=== PATIENT | female | born 1950 | race Caucasian/White ===

== ENCOUNTER 2018-01-11 12:24 | Inpatient (IN) ==
[2018-01-11] MEDS ORDERED: MethylPREDNISolone Sod Succinate Inj 125 MG/2 ML Vial IV.PUSH ONE (12:49)
--- NOTE | 2018-01-11 13:22 | ED ---
HPI General Chief complaint: Respiratory Symptoms Stated complaint: SOB Time Seen by Provider: 01/11/18 12:38 Source: patient and family Mode of arrival: wheelchair Limitations: no limitations History of Present Illness HPI narrative: 67-year-old female with a history of smoking the presents to the ED for evaluation of shortness of breath and cold-like symptoms. Per patient she has had a shortness of breath for almost a week. Per family member who provides most of the information she has been sick for about a week but the past 2 days she has been having a lot of trouble breathing. She cannot lay down on her own. She does not have a history of COPD but believes that she has emphysema. She does not use any medications and has not seen any physician for the past 5 years. Denies any chest pain. She states having some cough but her main symptom is just short of breath. She was walking on even sitting causes shortness of breath. Even just sitting on the table right now causes her shortness of breath. She denies any recent travel. No history of blood clots. Per patient she is never been diagnosed with anything as far she. She takes no medications. No surgeries. No recent travel. Related Data Home Medications Medication Instructions Recorded Confirmed No Known Home Medications 01/11/18 01/11/18 Allergies Allergy/AdvReac Type Severity Reaction Status Date / Time No Known Allergies Allergy Verified 01/11/18 12:32 Review of Systems ROS: all other systems reviewed are negative [facility] Medical History Medical History History of hysterectomy (Acute) Patient denies medical problems (Acute) Social History Social History Substance History: No History of Abuse Second Hand Smoke Exposure: No Smoking Status: Former smoker Tobacco Type: Cigarettes How Often Do You Have a Drink Containing Alcohol: Never Recent Travel in [facility] within the Last 8 Weeks: No Recent Out of Country Travel within the Last 8 Weeks: No Immunization History Tetanus Immunization: >5 Years Hx Influenza Vaccine This Season: No Exam Narrative Exam Narrative: GENERAL: Very dishoveled and in some distress SKIN: Focused skin assessment warm/dry. HEAD: Atraumatic. Normocephalic. EYES: Pupils equal and round. No scleral icterus. No injection or drainage. ENT: No nasal bleeding or discharge. Mucous membranes pink and moist. Tongue is midline. No uvula deviation. NECK: Trachea midline. No JVD. CARDIOVASCULAR: Irregular irregular rate and rhythm. No murmur appreciated. RESPIRATORY: No accessory muscle use. Clear to auscultation. Breath sounds equal bilaterally. GASTROINTESTINAL: Abdomen soft, non-tender, nondistended. Hepatic and splenic margins not palpable. MUSCULOSKELETAL: No obvious deformities. No clubbing. No cyanosis. No edema. Full range of motion of the upper and lower extremity bilaterally. 2+ pulses bilaterally. NEUROLOGICAL: Awake and alert. No obvious cranial nerve deficits. Motor grossly within normal limits. Normal speech. PSYCHIATRIC: Appropriate mood and affect; insight and judgment normal. Course Initial Documented Vital Signs Temperature 97.1 F L 01/11/18 12:26 Pulse Rate 98 H 01/11/18 12:26 Respiratory Rate 16 01/11/18 12:26 Blood Pressure 179/93 H 01/11/18 12:26 Pulse Oximetry 91 L 01/11/18 12:26 Last Documented Vital Signs Temperature 97.1 F L 01/11/18 12:26 Pulse Rate 144 H 01/11/18 16:57 Respiratory Rate 16 01/11/18 16:57 Blood Pressure 136/98 H 01/11/18 16:57 Pulse Oximetry 93 L 01/11/18 16:57 Medical Decision Making MDM Narrative Medical decision making narrative: 67-year-old female that presents to the ED for evaluation of shortness of breath. Patient was properly examined and was found to have signs and symptoms concerning what appears to be atrial fibrillation RVR. She is in the heart rate in the 140s 150s. Her lung exam appears to be clear but she does have a hard time breathing. The suspect also some emphysema. She was given breathing treatment on diltiazem bolus. She will be put on the drip as well as she would require likely multiple breathing treatments. My attending Dr. Borges himself evaluated the patient and agrees with this plan. Labs and imaging were ordered. Labs and imaging showed no sign of acute disease that we can see but she does have what appears to be A. fib and RVR. Her lung exam is pretty benign. She does have a little work of breathing. We recommend at this time BiPAP to see if this will help. Patient was started on diltiazem with drip. PE study will be done to rule out PE secondary to her symptoms. CTA negative for PE but does show what appears to be possible pneumonia. Will admit for further treatment and evaluation. Patient agrees with admission. Case discussed with Dr. Nuñez with agrees to admission. My attending Dr. Borges agrees with plan. Medical Screen Exam Complete: Yes Emergency Medical Condition: Yes Differential Diagnosis Differential Diagnosis: COPD exacerbation versus a fibrillation RVR versus chest pain versus typical chest pain versus asthma exacerbation versus ACS Medical Records Medical records reviewed: Yes I reviewed the patient's medical records. Lab Data Lab results reviewed: Yes I reviewed the patient's lab results. Result diagrams: 01/11/18 13:00 01/11/18 13:00 Lab Results 01/11/18 01/11/18 01/11/18 Range/Units 13:00 13:00 13:00 WBC 5.9 (4.0-11.0) th/mm3 RBC 5.47 H (4.00-5.30) mil/mm3 Hgb 16.0 H (11.6-15.3) gm/dL Hct 45.7 (35.0-46.0) % MCV 83.7 (80.0-100.0) fL MCH 29.3 (27.0-34.0) pg MCHC 35.0 (32.0-36.0) % RDW 14.0 (11.6-17.2) % Plt Count 132 L (150-450) th/mm3 MPV 8.2 (7.0-11.0) fL Neut % (Auto) 75.2 H (16.0-70.0) % Lymph % (Auto) 12.6 (9.0-44.0) % Toombs % (Auto) 12.0 H (0.0-8.0) % Eos % (Auto) 0.0 (0.0-4.0) % Baso % (Auto) 0.2 (0.0-2.0) % Neut # (Auto) 4.4 (1.8-7.7) th/mm3 Lymph # (Auto) 0.7 L (1.0-4.8) th/mm3 Toombs # (Auto) 0.7 (0.0-0.9) th/mm3 Eos # (Auto) 0.0 (0.0-0.4) th/mm3 Baso # (Auto) 0.0 (0.0-0.2) th/mm3 WBC Differential . Differential Comment Auto diff final Puncture Site Patient Temperature O2 Saturation (90-100) % ABG pH (7.380-7.420) ABG pCO2 (38-42) mmHg ABG pO2 (61-120) mmHg ABG HCO3 (22-26) mmol/L ABG O2 Content (12.0-20.0) Vol % ABG Base Excess (-2-2) mmol/L ABG Methemoglobin (0-2) % Raudel Test Hemoglobin (12.0-16.0) G/DL Carboxyhemoglobin (0-4) % O2 Delivery Device Liter Flow L/M Critical Value Sodium 138 (136-145) meq/L Potassium 3.2 L (3.5-5.1) meq/L Chloride 97 L (98-107) meq/L Carbon Dioxide 27.4 (21.0-32.0) meq/L Anion Gap 14 (5-15) meq/L BUN 22 H (7-18) mg/dL Creatinine 1.18 H (0.50-1.00) mg/dL Estimated GFR 46 L (>89) mL/min Random Glucose 110 H (74-106) mg/dL Calcium 9.0 (8.5-10.1) mg/dL Magnesium 2.0 (1.5-2.5) mg/dL Total Bilirubin 0.6 (0.2-1.0) mg/dL AST 45 H (15-37) U/L ALT 30 (10-53) U/L Alkaline Phosphatase 144 H (45-117) U/L Total Creatine Kinase 87 (26-192) U/L Troponin I 0.03 (0.02-0.05) ng/mL B-Natriuretic Peptide 87 (0-100) pg/mL Total Protein 8.0 (6.4-8.2) g/dL Albumin 3.3 L (3.4-5.0) g/dL 01/11/18 Range/Units 13:30 WBC (4.0-11.0) th/mm3 RBC (4.00-5.30) mil/mm3 Hgb (11.6-15.3) gm/dL Hct (35.0-46.0) % MCV (80.0-100.0) fL MCH (27.0-34.0) pg MCHC (32.0-36.0) % RDW (11.6-17.2) % Plt Count (150-450) th/mm3 MPV (7.0-11.0) fL Neut % (Auto) (16.0-70.0) % Lymph % (Auto) (9.0-44.0) % Toombs % (Auto) (0.0-8.0) % Eos % (Auto) (0.0-4.0) % Baso % (Auto) (0.0-2.0) % Neut # (Auto) (1.8-7.7) th/mm3 Lymph # (Auto) (1.0-4.8) th/mm3 Toombs # (Auto) (0.0-0.9) th/mm3 Eos # (Auto) (0.0-0.4) th/mm3 Baso # (Auto) (0.0-0.2) th/mm3 WBC Differential Differential Comment Puncture Site Right radial Patient Temperature 98.6 O2 Saturation 96 (90-100) % ABG pH 7.45 H (7.380-7.420) ABG pCO2 40 (38-42) mmHg ABG pO2 91 (61-120) mmHg ABG HCO3 27 H (22-26) mmol/L ABG O2 Content 22.8 H (12.0-20.0) Vol % ABG Base Excess 3.4 H (-2-2) mmol/L ABG Methemoglobin 0.6 (0-2) % Raudel Test Present Hemoglobin 17.0 H (12.0-16.0) G/DL Carboxyhemoglobin 1.0 (0-4) % O2 Delivery Device Nasal cannula Liter Flow 3.00 L/M Critical Value No Sodium (136-145) meq/L Potassium (3.5-5.1) meq/L Chloride (98-107) meq/L Carbon Dioxide (21.0-32.0) meq/L Anion Gap (5-15) meq/L BUN (7-18) mg/dL Creatinine (0.50-1.00) mg/dL Estimated GFR (>89) mL/min Random Glucose (74-106) mg/dL Calcium (8.5-10.1) mg/dL Magnesium (1.5-2.5) mg/dL Total Bilirubin (0.2-1.0) mg/dL AST (15-37) U/L ALT (10-53) U/L Alkaline Phosphatase (45-117) U/L Total Creatine Kinase (26-192) U/L Troponin I (0.02-0.05) ng/mL B-Natriuretic Peptide (0-100) pg/mL Total Protein (6.4-8.2) g/dL Albumin (3.4-5.0) g/dL Imaging Data Attestation: I personally reviewed and interpreted this imaging study as follows : Radiologist's impression: Chest X-Ray 01/11/18 12:44 CONCLUSION: 1. Bibasilar atelectasis. 2. Degenerative changes and scoliosis of the thoracolumbar spine. Chest CTA 01/11/18 14:23 CONCLUSION: 1. No evidence of pulmonary embolism. 2. There is mild patchy infiltrate in the right middle lobe and right lower lobe of concern for early pneumonia. 3. Underlying emphysema. ECG Data Attestation: I personally reviewed and interpreted this ECG as follows: Interpretation: Atrial fibrillation and RVR but no sign of ST elevation or ischemia at this time. Read by me and attending. Discharge Plan Discharge Disposition Patient Disposition: 30 Still Patient Discharge Details Diagnosis: Atrial fibrillation with rapid ventricular response, Acute respiratory distress Physicians Team ED Provider: John Borges ED Midlevel Provider: Gen Llanes Primary Care Provider: Primary Care Ya Marvin Rxs /Orders / Referrals /Forms Prescriptions: No Action No Known Home Medications RF: 0 Status ED Status: With Doctor
[2018-01-11] MEDS ORDERED: Sod Chloride 0.9% Inj 1,000 ML IV.SIG SCH (13:30)
--- NOTE | 2018-01-11 13:30 | XR ---
EXAM DATE: 01/11/2018 12:44 PM EDT AGE/SEX: 67 years / Female INDICATIONS: Short of breath, rapid heart beat CLINICAL DATA: This is the patient's initial encounter. Patient reports that signs and symptoms have been present for 1 day and indicates a pain score of 0/10. MEDICAL/SURGICAL HISTORY: Emphysema. Tubal ligation. COMPARISON: No prior exams available for comparison. FINDINGS: Bibasilar atelectasis is noted. No pulmonary edema is noted. The heart is normal. Degenerative change s and scoliosis of the thoracolumbar spine are noted. CONCLUSION: 1. Bibasilar atelectasis. 2. Degenerative changes and scoliosis of the thoracolumbar spine. Electronically signed by: Salvatore Jett MD 01/11/2018 1:29 PM EDT
[2018-01-11] MEDS: dilTIAZem Inj 125 MG in Sodium Chlor 0.9% Inj 100 ML IV.CONT PRN ×2 (13:39→22:58)
[2018-01-11 13:43] LABS: ABG Base Excess 3.4 mmol/L (-2-2); ABG PCO2 40 mmHg (38-42); ABG PO2 91 mmHg (61-120)
[2018-01-11 13:46] LABS: Baso % (Auto) 0.2 % (0.0-2.0); Hematocrit 45.7 % (35.0-46.0); Lymph # (Auto) 0.7 th/mm3 (1.0-4.8); Lymph % (Auto) 12.6 % (9.0-44.0); Mean Corpuscular Hemoglobin 29.3 pg (27.0-34.0); Mean Corpuscular Volume 83.7 fL (80.0-100.0); Mean Platelet Volume 8.2 fL (7.0-11.0); Mono # (Auto) 0.7 th/mm3 (0.0-0.9); Neut # (Auto) 4.4 th/mm3 (1.8-7.7); Neut % (Auto) 75.2 % (16.0-70.0); Platelet Count 132 th/mm3 (150-450); Red Blood Count 5.47 mil/mm3 (4.00-5.30); White Blood Count 5.9 th/mm3 (4.0-11.0)
[2018-01-11 14:07] LABS: Alanine Aminotransferase 30 U/L (10-53); Albumin 3.3 g/dL (3.4-5.0); Anion Gap 14 meq/L (5-15); Aspartate Aminotransferase 45 U/L (15-37); Blood Urea Nitrogen 22 mg/dL (7-18); Carbon Dioxide 27.4 meq/L (21.0-32.0); Chloride 97 meq/L (98-107); Glomerular Filtration Rate 46 mL/min (>89); Glucose,Random 110 mg/dL (74-106); Potassium 3.2 meq/L (3.5-5.1); Sodium 138 meq/L (136-145)
[2018-01-11 14:11] LABS: Alkaline Phosphatase 144 U/L (45-117); Troponin I 0.03 ng/mL (0.02-0.05)
[2018-01-11 14:15] LABS: Creatine Kinase 87 U/L (26-192)
--- NOTE | 2018-01-11 16:53 | CT ---
EXAM DATE: 01/11/2018 2:50 PM EDT AGE/SEX: 67 years / Female INDICATIONS: Shortness of breath. CLINICAL DATA: This is the patient's initial encounter. Patient reports that signs and symptoms have been present for 1 week and indicates a pain score of 2/10. MEDICAL/SURGICAL HISTORY: None. Hysterectomy. RADIATION DOSE: 7.22 CTDI (mGy) COMPARISON: No prior exams available for comparison. TECHNIQUE: Volumetric scanning was performed using a multi-row detector CT scanner during bolus infu chiqui of 70 ml Omnipaque 350 (iohexol) nonionic water-soluble contrast as a single exam dose. The osmany a was post processed with a variety of visualization algorithms including full volume maximum intensi ty projection and sliding thin slab reformation. Using automated exposure control and adjustment of t he mA and/or kV according to patient size, radiation dose was kept as low as reasonably achievable to obtain optimal diagnostic quality images. DICOM format image data is available electronically for r eview and comparison. FINDINGS: Pulmonary Arteries: No filling defects are seen in the pulmonary arteries out to the subsegmental ve ssels. The left and right pulmonary arteries are normal in diameter. Lung: There is mild patchy infiltrate in the right middle lobe and right lower lobe. There is underl shaun emphysema. Effusion: None. Mediastinum: No evidence of mediastinal or hilar adenopathy. Other: The axilla is unremarkable. CONCLUSION: 1. No evidence of pulmonary embolism. 2. There is mild patchy infiltrate in the right middle lobe and right lower lobe of concern for villa y pneumonia. 3. Underlying emphysema. Electronically signed by: Thaddeus Thomson MD 01/11/2018 4:52 PM EDT
[2018-01-11] MEDS ORDERED: Azithromycin Inj 500 MG in Sodium Chlor 0.9% Inj 250 ML IV.SIG ONE (16:56)
[2018-01-11] MEDS ORDERED: Acetaminophen 325 MG Tablet PO PRN ×2 (17:26→18:47)
[2018-01-11] MEDS ORDERED: Bisacodyl 10 MG Supp RECTAL PRN (17:26)
--- NOTE | 2018-01-11 17:51 | P.HP ---
History of Present Illness Service: [facility] Primary Care Physician: No Primary Care Physician Chief Complaint: SOB History of Present Illness: Mrs. Guthrie is a 67-year-old white female with significant past medical history of tobacco abuse, COPD, emphysema. Patient presented to the emergency room for complaint of shortness of breath. Patient indicates she is been short of breath for a week, has been worsening over the last 3 days to the point that she could anything walk down the stairs. She is unable to lay flat, she has had cough with very little sputum, increased wheezing, has had subjective fever and chills. Does not use oxygen at home. She denies any chest pain, complains of some fluttering on her chest. She does not take any medications, indicates she has not seen a primary care physician in the last 5 years. Patient has been told she has COPD and emphysema but has never been treated and is not on any nebulizer. Patient was evaluated in the emergency room, she was noted in A. fib with RVR. Patient denies any history of dysrhythmia, no history of coronary artery disease. Laboratory workup was done, CBC remarkable for platelet of 132, hemoglobin 16. BMP remarkable for creatinine 1.18, potassium 3.2. AST 45. BNP was 87. CTA negative for PE, mild patchy infiltrate in the right middle lobe, right lower lobe of concern for early pneumonia, underlying emphysema. Chest x-ray with bibasilar atelectasis, degenerative changes and a scoliosis of the thoracolumbar spine. Heart rate was noted in the 140s 150s, she received diltiazem bolus and is currently on a drip at 15 mg/h. She has received multiple breathing treatments in addition to Solu-Medrol 125 mg x1. She was given azithromycin and ceftriaxone. At this time, she is resting comfortably. Indicates that she has cut down on smoking and occasionally smokes 1-2 with her coffee. Patient is admitted for further evaluation and treatment. - Diagnosis (1) Pneumonia (2) COPD exacerbation (3) Hypokalemia (4) Renal insufficiency (5) Atrial fibrillation with rapid ventricular response (6) Acute respiratory distress Inpatient Certification: I certify that the inpatient services were ordered in accordance with Medicare regulations governing the order. This includes certification that hospital inpatient services are reasonable and necessary and in the case of services not specified as inpatient-only under 42 CFR 419.22(n), that they are appropriately provided as inpatient services in accordance to with the 2-midnight benchmark under 43 CFR 412.3(e) Estimated Total Length of Stay (Days): 2 Plans for Post Hospital Care: Home Review of Systems All other systems reviewed negative except as stated in HPI [facility] - History History Provided By: Patient - Medical History Medical History: Medical History (Last Updated 01/11/18 @ 18:11 by BRIDGET Clemons) COPD (chronic obstructive pulmonary disease) Emphysema lung History of hysterectomy Hypertension Patient denies medical problems Syncope - Family History Family History: Family History (Last Updated 01/11/18 @ 18:12 by BRIDGET Clemons) Sister Myocardial infarction Coronary artery disease Mother Myocardial infarction Coronary artery disease Father Myocardial infarction Coronary artery disease - Social History I have reviewed the patient's Social History: Yes - Tobacco History Second Hand Smoke Exposure: No Tobacco Use In Past 30 Days: Yes Smoking Status: Former smoker (Was smoking half a pack a day since age 28, currently smokes 1-2 cigarettes a day) Tobacco Type: Cigarettes - Alcohol History How Often Do You Have a Drink Containing Alcohol: Never - Substance Use History Substance History: No History of Abuse - Travel History Recent Travel in the [place] Within the Last 8 Weeks: No Recent Travel Out of the Country Within the Last 8 Weeks: No - Immunization History Tetanus Immunization: >5 Years Hx Influenza Vaccine This Season: No Medications and Allergies Active Medications: Active Medications Acetaminophen (Tylenol) 650 mg PO Q4H PRN PRN Reason: Temp > 100.4 Al Hydroxide/Mg Hydroxide (Milk Of [place] Liq) 30 ml PO Q12H PRN PRN Reason: Mild Constipation Albuterol (Duoneb Neb (Prn)) 1 ampul NEB Q4HR NEB PRN PRN Reason: WHEEZING Bisacodyl (Dulcolax Supp) 10 mg RECTAL DAILY PRN PRN Reason: SEVERE CONSITIPATION Enoxaparin Sodium (Lovenox Inj) 30 mg SQ DAILY LV Diltiazem HCl 125 mg/ Sodium (Chloride) 125 mls @ 5 mls/hr IV.CONT TITRATE PRN ; Protocol PRN Reason: Per Protocol Last Titration: 01/11/18 16:59 Dose: 15 mg/hr, 15 mls/hr Sodium Chloride (Ns Inj) 1,000 mls @ 0 mls/hr IV.SIG BOLUS LV Azithromycin 500 mg/ Sodium (Chloride) 250 mls @ 250 mls/hr IV.SIG ONCE ONE Stop: 01/11/18 17:55 Last Admin: 01/11/18 17:14 Dose: 250 mls/hr Ceftriaxone Sodium 1,000 mg/ (Sodium Chloride) 100 mls @ 200 mls/hr IV.SIG Q24H LV Azithromycin 500 mg/ Sodium (Chloride) 250 mls @ 250 mls/hr IV.SIG Q24H LV Lactulose (Lactulose Liq) 30 ml PO DAILY PRN PRN Reason: SEVERE CONSITIPATION Ondansetron HCl (Zofran Inj) 4 mg IV.PUSH Q6H PRN PRN Reason: NAUSEA OR VOMITING Sennosides (Senokot) 17.2 mg PO Q12H PRN PRN Reason: Moderate Constipation Allergies Allergy/AdvReac Type Severity Reaction Status Date / Time No Known Allergies Allergy Verified 01/11/18 12:32 Home Medications Medication Instructions Recorded Confirmed Type No Known Home Medications 01/11/18 01/11/18 History Exam Vital signs: Vital Signs 01/11/18 12:26 01/11/18 13:02 01/11/18 13:03 Temperature 97.1 F L Pulse Rate 98 H 126 H 148 H Respiratory Rate 16 30 H Blood Pressure 179/93 H 173/98 H Pulse Oximetry 91 L 93 L 01/11/18 13:04 01/11/18 13:30 01/11/18 13:53 Temperature Pulse Rate 114 H 105 H Respiratory Rate 26 H 24 Blood Pressure Pulse Oximetry 93 L 01/11/18 13:58 01/11/18 15:28 01/11/18 16:57 Temperature Pulse Rate 114 H 134 H 144 H Respiratory Rate 25 H 24 16 Blood Pressure 159/69 H 136/98 H Pulse Oximetry 93 L 93 L Intake & Output 01/10/18 01/11/18 01/11/18 18:59 06:59 18:59 Weight 68.039 kg Narrative: GENERAL: Thin built, 67-year-old female, no apparent distress appears older than stated age SKIN: Warm and dry. HEAD: Atraumatic. Normocephalic. EYES: Pupils equal and round. No scleral icterus. No injection or drainage. ENT: No nasal bleeding or discharge. Mucous membranes pink and moist. NECK: Trachea midline. No JVD. CARDIOVASCULAR: S1-S2, irregularly irregular. Unable to detect any murmurs rubs or gallops. Atrial fibrillation with rapid ventricular response on monitor. RESPIRATORY: Faint rhonchi, and expiratory wheezing. GASTROINTESTINAL: Abdomen soft, non-tender, nondistended. Hepatic and splenic margins not palpable. MUSCULOSKELETAL: Extremities without clubbing, cyanosis, or edema. No obvious deformities. NEUROLOGICAL: Awake and alert. No obvious cranial nerve deficits. Motor grossly within normal limits. Five out of 5 muscle strength in the arms and legs. Normal speech. PSYCHIATRIC: Appropriate mood and affect; insight and judgment normal. Results - Labs CBC & Chem 7: 01/11/18 13:00 01/11/18 13:00 Labs: Laboratory Results - last 24 hr 01/11/18 01/11/18 01/11/18 13:00 13:00 13:00 WBC 5.9 RBC 5.47 H Hgb 16.0 H Hct 45.7 MCV 83.7 MCH 29.3 MCHC 35.0 RDW 14.0 Plt Count 132 L MPV 8.2 Neut % (Auto) 75.2 H Lymph % (Auto) 12.6 Pershing % (Auto) 12.0 H Eos % (Auto) 0.0 Baso % (Auto) 0.2 Neut # (Auto) 4.4 Lymph # (Auto) 0.7 L [place] # (Auto) 0.7 Eos # (Auto) 0.0 Baso # (Auto) 0.0 WBC Differential . Differential Comment Auto diff final Puncture Site Patient Temperature O2 Saturation ABG pH ABG pCO2 ABG pO2 ABG HCO3 ABG O2 Content ABG Base Excess ABG Methemoglobin Raudel Test Hemoglobin Carboxyhemoglobin O2 Delivery Device Liter Flow Critical Value Sodium 138 Potassium 3.2 L Chloride 97 L Carbon Dioxide 27.4 Anion Gap 14 BUN 22 H Creatinine 1.18 H Estimated GFR 46 L Random Glucose 110 H Calcium 9.0 Magnesium 2.0 Total Bilirubin 0.6 AST 45 H ALT 30 Alkaline Phosphatase 144 H Total Creatine Kinase 87 Troponin I 0.03 B-Natriuretic Peptide 87 Total Protein 8.0 Albumin 3.3 L 01/11/18 13:30 WBC RBC Hgb Hct MCV MCH MCHC RDW Plt Count MPV Neut % (Auto) Lymph % (Auto) [place] % (Auto) Eos % (Auto) Baso % (Auto) Neut # (Auto) Lymph # (Auto) [place] # (Auto) Eos # (Auto) Baso # (Auto) WBC Differential Differential Comment Puncture Site Right radial Patient Temperature 98.6 O2 Saturation 96 ABG pH 7.45 H ABG pCO2 40 ABG pO2 91 ABG HCO3 27 H ABG O2 Content 22.8 H ABG Base Excess 3.4 H ABG Methemoglobin 0.6 Raudel Test Present Hemoglobin 17.0 H Carboxyhemoglobin 1.0 O2 Delivery Device Nasal cannula Liter Flow 3.00 Critical Value No Sodium Potassium Chloride Carbon Dioxide Anion Gap BUN Creatinine Estimated GFR Random Glucose Calcium Magnesium Total Bilirubin AST ALT Alkaline Phosphatase Total Creatine Kinase Troponin I B-Natriuretic Peptide Total Protein Albumin - Imaging Impressions Chest X-Ray 01/11/18 12:44 CONCLUSION: 1. Bibasilar atelectasis. 2. Degenerative changes and scoliosis of the thoracolumbar spine. Chest CTA 01/11/18 14:23 CONCLUSION: 1. No evidence of pulmonary embolism. 2. There is mild patchy infiltrate in the right middle lobe and right lower lobe of concern for early pneumonia. 3. Underlying emphysema. Caprini VTE Risk Assessment Caprini VTE Risk Assessment: No/Low Risk (score <= 1) Caprini Risk Assessment Model: Point Value = 1 Point Value = 2 Point Value = 3 Point Value = 5 Age 41-60 Minor surgery BMI > 25 kg/m2 Swollen legs Varicose veins or History of unexplained or recurrent spontaneous Oral contraceptives or hormone replacement Sepsis (< 1 month) Serious lung disease, including pneumonia (< 1 month) Abnormal pulmonary function Acute myocardial infarction Congestive heart failure (< 1 month) History of inflammatory bowel disease Medical patient at bed rest Age 61-74 Arthroscopic surgery Major open surgery (> 45 min) Laparoscopic surgery (> 45 min) Malignancy Confined to bed (> 72 hours) Immobilizing plaster cast Central venous access Age >= 75 History of VTE Family history of VTE Factor V Leiden Prothrombin [id number] Lupus anticoagulant Anticardiolipin antibodies Elevated serum homocysteine Heparin-induced thrombocytopenia Other congenital or acquired thrombophilia Stroke (< 1 month) Elective arthroplasty Hip, pelvis, or leg fracture Acute spinal cord injury (< 1 month) Prophylaxis Regimen: Total Risk Factor Score Risk Level Prophylaxis Regimen 0-1 Low Early ambulation 2 Moderate Order ONE of the following: *Sequential Compression Device (SCD) *Heparin 5000 units SQ BID 3-4 Higher Order ONE of the following medications: *Heparin 5000 units SQ TID *Enoxaparin/Lovenox 40 mg SQ daily (WT < 150 kg, CrCl > 30 mL/min) *Enoxaparin/Lovenox 30 mg SQ daily (WT < 150 kg, CrCl > 10-29 mL/min) *Enoxaparin/Lovenox 30 mg SQ BID (WT < 150 kg, CrCl > 30 mL/min) AND/OR *Sequential Compression Device (SCD) 5 or more Highest Order ONE of the following medications: *Heparin 5000 units SQ TID (Preferred with Epidurals) *Enoxaparin/Lovenox 40 mg SQ daily (WT < 150 kg, CrCl > 30 mL/min) *Enoxaparin/Lovenox 30 mg SQ daily (WT < 150 kg, CrCl > 10-29 mL/min) *Enoxaparin/Lovenox 30 mg SQ BID (WT < 150 kg, CrCl > 30 mL/min) AND *Sequential Compression Device (SCD) Assessment and Plan - Assessment (1) Pneumonia Code(s): J18.9 - Pneumonia, unspecified organism Status: Acute (2) COPD exacerbation Code(s): J44.1 - Chronic obstructive pulmonary disease with (acute) exacerbation Status: Acute (3) Hypokalemia Code(s): E87.6 - Hypokalemia Status: Acute (4) Renal insufficiency Code(s): N28.9 - Disorder of kidney and ureter, unspecified Status: Acute (5) Atrial fibrillation with rapid ventricular response Code(s): I48.91 - Unspecified atrial fibrillation Status: Acute (6) Acute respiratory distress Code(s): R06.03 - Acute respiratory distress Status: Acute - Plan 67-year-old female with history of COPD, tobacco abuse, emphysema. Presented to emergency room with worsening shortness of breath, wheezing, subjective fever and chills. Was found with A. sunny with RVR, new onset COPD exacerbation, underlying emphysema Pneumonia, right middle, right lower lobe. Likely community-acquired -Continue with supplemental oxygen at 4 L to keep sats greater than 90. BiPAP as needed Solu-Medrol 60 mg IV every 6 Duo nebs every 4 as needed Continue with empiric antibiotics, Zithromax and ceftriaxone Continue to follow cultures We will check flu swab -Likely need walk test in 1-2 days to assess whether she will need oxygen A. fib with RVR, new onset, possibly associated with COPD, respiratory distress [id number] score 2 -We will check troponin CPK every 6x2 Consult cardiology for evaluation -Continue with Cardizem drip and titrate to keep heart rate less than 100 Consult cardiology for evaluation We will check 2D echo Renal insufficiency Hypokalemia Was given 1000 cc fluid bolus We will check BMP in the morning Avoid nephrotoxic agents Hypertension, patient not on any medications. At this time we will leave on diltiazem -May need maintenance medication when discharge Tobacco abuse Patient has been cutting down Encouraged to abstain -Tobacco abuse counseling Lovenox for DVT prophylaxis Plan of care discussed with patient and RN. Further management of the patient will be dependent on hospital course Code Status: Full code Discussed Condition With: RN, patient Discharge Planning: Discharge planning in progress, possibly home in 2-3 days (1) Pneumonia Qualifiers: Pneumonia type: due to unspecified organism Laterality: right Lung location : lower lobe of lung Qualified Code(s): J18.1 - Lobar pneumonia, unspecified organism
[2018-01-11] MEDS ORDERED: Potassium Chloride 25 MEQ Effervescent Tablet PO ONE ×2 (18:26→18:45)
[2018-01-11 19:57] LABS: Troponin I 0.03 ng/mL (0.02-0.05)
[2018-01-12] MEDS: MethylPREDNISolone Sod Succinate Inj 125 MG/2 ML Vial IV.PUSH SCH ×2 (00:27→06:19)
[2018-01-12 01:43] LABS: Troponin I 0.03 ng/mL (0.02-0.05)
[2018-01-12 07:18] LABS: Baso % (Auto) 0.1 % (0.0-2.0); Hematocrit 41.1 % (35.0-46.0); Hemoglobin 14.2 gm/dL (11.6-15.3); Lymph # (Auto) 0.4 th/mm3 (1.0-4.8); Lymph % (Auto) 13.4 % (9.0-44.0); Mean Corpuscular HGB Conc 34.4 % (32.0-36.0); Mean Corpuscular Hemoglobin 28.7 pg (27.0-34.0); Mean Corpuscular Volume 83.4 fL (80.0-100.0); Mean Platelet Volume 8.2 fL (7.0-11.0); Mono # (Auto) 0.2 th/mm3 (0.0-0.9); Mono % (Auto) 4.8 % (0.0-8.0); Neut # (Auto) 2.7 th/mm3 (1.8-7.7); Neut % (Auto) 81.7 % (16.0-70.0); Platelet Count 147 th/mm3 (150-450); Red Blood Count 4.93 mil/mm3 (4.00-5.30); Red Cell Distribution Width 13.9 % (11.6-17.2); White Blood Count 3.3 th/mm3 (4.0-11.0)
[2018-01-12 07:48] LABS: Calcium 8.7 mg/dL (8.5-10.1); Carbon Dioxide 27.7 meq/L (21.0-32.0); Potassium 3.1 meq/L (3.5-5.1)
[2018-01-12] MEDS: Enoxaparin Inj 30 MG/0.3 ML Syringe SQ SCH (08:45)
--- NOTE | 2018-01-12 08:56 | P.CONCA ---
History of Present Illness Service: cardiology Consult date: 01/12/18 Requesting Physician: Valod Nuñez Primary Care Provider: No Primary Care Physician new onset afib RVR Chief Complaint: SOB History of Present Illness: 67 yo WF with no prior cardiac history, COPD and tobacco abuse presented with progressive dyspnea x 1 week. She reports feeling SOB chronically but in the past several days this has progressed to dyspnea at rest. She admits to feeling palpitations intermittently for years lately more frequent. She is a daily smoker. Denies chest pain, edema or syncope. Reported significant family history with her sister having an SD age 39 and mother passing away from a SD in her 50's. EKG upon arrival in ED showed afib RVR HR 140-150bpm, currently on cardizem gtt with improved HR now fluctuating between 80-110bpm. chest films indicate possible pneumonia. Troponin x 3 negative. CTA negative for P.E. Currently tachypneic at rest, no chest pain. Review of Systems All other systems reviewed negative except as stated in HPI [facility] - History History Provided By: Patient - Medical History Medical History: Medical History (Last Updated 01/11/18 @ 18:11 by BRIDGET Clemons) COPD (chronic obstructive pulmonary disease) Emphysema lung History of hysterectomy Hypertension Patient denies medical problems Syncope - Family History Family History: Family History (Last Updated 01/11/18 @ 18:12 by BRIDGET Clemons) Sister Myocardial infarction Coronary artery disease Mother Myocardial infarction Coronary artery disease Father Myocardial infarction Coronary artery disease - Tobacco History Second Hand Smoke Exposure: No Tobacco Use In Past 30 Days: Yes Smoking Status: Former smoker (Was smoking half a pack a day since age 28, currently smokes 1-2 cigarettes a day) Tobacco Type: Cigarettes - Alcohol History How Often Do You Have a Drink Containing Alcohol: Never - Substance Use History Substance History: No History of Abuse - Travel History Recent Travel in the [place] Within the Last 8 Weeks: No Recent Travel Out of the Country Within the Last 8 Weeks: No - Immunization History Tetanus Immunization: >5 Years Hx Influenza Vaccine This Season: No Medications and Allergies Allergies Allergy/AdvReac Type Severity Reaction Status Date / Time No Known Allergies Allergy Verified 01/11/18 12:32 Home Medications Medication Instructions Recorded Confirmed Type No Known Home Medications 01/11/18 01/11/18 History Active Medications: Active Medications Acetaminophen (Tylenol) 650 mg PO Q4H PRN PRN Reason: Temp > 100.4 Al Hydroxide/Mg Hydroxide (Milk Of Magnesia Liq) 30 ml PO Q12H PRN PRN Reason: Mild Constipation Albuterol (Duoneb Neb (Prn)) 1 ampul NEB Q4HR NEB PRN PRN Reason: WHEEZING Last Admin: 01/11/18 21:37 Dose: 1 ampul Bisacodyl (Dulcolax Supp) 10 mg RECTAL DAILY PRN PRN Reason: SEVERE CONSITIPATION Enoxaparin Sodium (Lovenox Inj) 30 mg SQ DAILY LV Diltiazem HCl 125 mg/ Sodium (Chloride) 125 mls @ 5 mls/hr IV.CONT TITRATE PRN ; Protocol PRN Reason: Per Protocol Last Titration: 01/12/18 00:28 Dose: 5 mg/hr, 5 mls/hr Sodium Chloride (Ns Inj) 1,000 mls @ 0 mls/hr IV.SIG BOLUS LV Azithromycin 500 mg/ Sodium (Chloride) 250 mls @ 250 mls/hr IV.SIG Q24H LV Ceftriaxone Sodium 1,000 mg/ (Sodium Chloride) 100 mls @ 200 mls/hr IV.SIG Q24H LV Lactulose (Lactulose Liq) 30 ml PO DAILY PRN PRN Reason: SEVERE CONSITIPATION Methylprednisolone Sodium Succinate (Solumedrol Inj) 60 mg IV.PUSH Q6H LV Last Admin: 01/12/18 06:19 Dose: 60 mg Ondansetron HCl (Zofran Inj) 4 mg IV.PUSH Q6H PRN PRN Reason: NAUSEA OR VOMITING Sennosides (Senokot) 17.2 mg PO Q12H PRN PRN Reason: Moderate Constipation Exam Vital signs: Vital Signs 01/11/18 12:26 01/11/18 13:02 01/11/18 13:03 Temperature 97.1 F L Pulse Rate 98 H 126 H 148 H Respiratory Rate 16 30 H Blood Pressure 179/93 H 173/98 H Pulse Oximetry 91 L 93 L 01/11/18 13:04 01/11/18 13:30 01/11/18 13:53 Temperature Pulse Rate 114 H 105 H Respiratory Rate 26 H 24 Blood Pressure Pulse Oximetry 93 L 01/11/18 13:58 01/11/18 15:28 01/11/18 16:57 Temperature Pulse Rate 114 H 134 H 144 H Respiratory Rate 25 H 24 16 Blood Pressure 159/69 H 136/98 H Pulse Oximetry 93 L 93 L 01/11/18 18:51 01/11/18 19:11 01/11/18 19:15 Temperature Pulse Rate 106 H 99 H Respiratory Rate 24 18 Blood Pressure 126/98 H 156/89 H Pulse Oximetry 93 L 94 L 96 01/11/18 20:00 01/11/18 21:00 01/11/18 22:00 Temperature 97.6 F Pulse Rate 101 H 96 H 112 H Respiratory Rate 24 Blood Pressure 150/100 H Pulse Oximetry 94 L 01/11/18 23:00 01/12/18 00:00 01/12/18 01:00 Temperature 97.6 F Pulse Rate 106 H 97 H 116 H Respiratory Rate 18 Blood Pressure 138/71 Pulse Oximetry 94 L 01/12/18 02:00 01/12/18 03:00 01/12/18 04:00 Temperature 98 F Pulse Rate 86 88 90 Respiratory Rate 20 Blood Pressure 158/72 H Pulse Oximetry 95 01/12/18 05:00 Temperature Pulse Rate 98 H Respiratory Rate Blood Pressure Pulse Oximetry Intake & Output 01/11/18 01/12/18 01/12/18 18:59 06:59 18:59 Intake Total 350 / 350 605 / 605 Output Total 325 / 325 Balance 350 / 350 280 / 280 Weight 68.039 kg 67.2 kg Intake: IV 350 / 350 125 / 125 Cardizem Inj 125 MG In NS Inj 125 / 125 100 ML @ 5 MG/HR 5 mls/hr IV. CONT TITRATE PRN Rx#:[id number] Azithromycin Inj 500 MG In NS 250 / 250 Inj 250 ML @ 250 mls/hr IV.SIG ONCE ONE Rx#:[id number] Rocephin Inj 1,000 MG In NS Inj 100 / 100 100 ML @ 200 mls/hr IV.SIG ONCE ONE Rx#:[id number] Oral 480 / 480 Output: Urine 325 / 325 Narrative: GENERAL: SKIN: Warm and dry. HEAD: Normocephalic. EYES: No scleral icterus. No injection or drainage. NECK: Supple, trachea midline. No JVD or lymphadenopathy. CARDIOVASCULAR: tachycardic, irregularly irregular rate and rhythm, no murmurs, gallops, or rubs. RESPIRATORY: tachypneic, decreased breath sounds bilaterally, mild wheeze GASTROINTESTINAL: Abdomen soft, non-tender, nondistended. MUSCULOSKELETAL: No cyanosis, or edema. BACK: Nontender without obvious deformity. No CVA tenderness. Results 01/12/18 06:23 01/12/18 06:23 Cardiac Enzymes 01/11/18 01/11/18 01/11/18 Range/Units 13:00 13:00 18:40 AST 45 H (15-37) U/L Troponin I 0.03 0.03 (0.02-0.05) ng/mL B-Natriuretic Peptide 87 (0-100) pg/mL 01/12/18 Range/Units 00:30 AST (15-37) U/L Troponin I 0.03 (0.02-0.05) ng/mL B-Natriuretic Peptide (0-100) pg/mL Coagulation 01/11/18 Range/Units 13:00 B-Natriuretic Peptide 87 (0-100) pg/mL CBC 01/11/18 01/12/18 Range/Units 13:00 06:23 WBC 5.9 3.3 L (4.0-11.0) th/mm3 RBC 5.47 H 4.93 (4.00-5.30) mil/mm3 Hgb 16.0 H 14.2 (11.6-15.3) gm/dL Hct 45.7 41.1 (35.0-46.0) % Plt Count 132 L 147 L (150-450) th/mm3 Neut # (Auto) 4.4 2.7 (1.8-7.7) th/mm3 Lymph # (Auto) 0.7 L 0.4 L (1.0-4.8) th/mm3 [place] # (Auto) 0.7 0.2 (0.0-0.9) th/mm3 Eos # (Auto) 0.0 0.0 (0.0-0.4) th/mm3 Baso # (Auto) 0.0 0.0 (0.0-0.2) th/mm3 Comprehensive Metabolic Panel 01/11/18 01/12/18 Range/Units 13:00 06:23 Sodium 138 142 (136-145) meq/L Potassium 3.2 L 3.1 L (3.5-5.1) meq/L Chloride 97 L 101 (98-107) meq/L Carbon Dioxide 27.4 27.7 (21.0-32.0) meq/L BUN 22 H 24 H (7-18) mg/dL Creatinine 1.18 H 1.03 H (0.50-1.00) mg/dL Calcium 9.0 8.7 (8.5-10.1) mg/dL AST 45 H (15-37) U/L ALT 30 (10-53) U/L Alkaline Phosphatase 144 H (45-117) U/L Total Protein 8.0 (6.4-8.2) g/dL Albumin 3.3 L (3.4-5.0) g/dL Intake and Output 01/11/18 01/12/18 01/12/18 22:59 06:59 14:59 Intake Total 475 / 475 480 / 480 Output Total 325 / 325 Balance 475 / 475 155 / 155 Intake: IV 475 / 475 Cardizem Inj 125 MG In NS Inj 125 / 125 100 ML @ 5 MG/HR 5 mls/hr IV. CONT TITRATE PRN Rx#:[id number] Azithromycin Inj 500 MG In NS 250 / 250 Inj 250 ML @ 250 mls/hr IV.SIG ONCE ONE Rx#:[id number] Rocephin Inj 1,000 MG In NS Inj 100 / 100 100 ML @ 200 mls/hr IV.SIG ONCE ONE Rx#:[id number] Oral 480 / 480 Output: Urine 325 / 325 Other: Weight 67.2 kg - Imaging and Cardiology Imaging: Impressions Chest X-Ray 01/11/18 12:44 CONCLUSION: 1. Bibasilar atelectasis. 2. Degenerative changes and scoliosis of the thoracolumbar spine. Chest CTA 01/11/18 14:23 CONCLUSION: 1. No evidence of pulmonary embolism. 2. There is mild patchy infiltrate in the right middle lobe and right lower lobe of concern for early pneumonia. 3. Underlying emphysema. Assessment and Plan - Assessment (1) Atrial fibrillation with rapid ventricular response Code(s): I48.91 - Unspecified atrial fibrillation Status: Acute - Plan 67 yo WF with no prior cardiac history, COPD and tobacco abuse presented with progressive dyspnea x 1 week. She reports feeling SOB chronically but in the past several days this has progressed to dyspnea at rest. She admits to feeling palpitations intermittently for years lately more frequent. She is a daily smoker. Denies chest pain, edema or syncope. Reported significant family history with her sister having an SD age 39 and mother passing away from a SD in her 50's. EKG upon arrival in ED showed afib RVR HR 140-150bpm. chest films indicate possible pneumonia. Troponin x 3 negative. CTA negative for P.E. Currently tachypneic at rest, no chest pain afib RVR- rate improved but remaining 80-110bpm, cont cardizem gtt. SBP elevated , consider addition of bb. no chest pain CHADS-Vasc score = 2 (age+gender); consider anticoagulation before discharge consider ischemic workup with nuclear stress testing echo planned for today COPD- cont breathing treatments, abx for possible PNA - Attending Attestation rate control anticoagulation likely induced by increased adrenergic tone due to respiratory distress lexiscan DC planning if workup negative once respiratory improved
[2018-01-12] MEDS ORDERED: Enoxaparin Inj 30 MG/0.3 ML Syringe SQ SCH (09:00)
--- NOTE | 2018-01-12 10:10 | P.PNIM ---
Subjective Interval history: The patient was resting comfortably. Her family was at the bedside. The patient says she has anxiety. She says she has not left her house in 5 years. She continues to have shortness of breath. She feels her heart rate go fast sometimes. Discussed with nursing. Physical Exam Vital signs: Vital Signs 01/11/18 12:26 01/11/18 13:02 01/11/18 13:03 Temperature 97.1 F L Pulse Rate 98 H 126 H 148 H Respiratory Rate 16 30 H Blood Pressure 179/93 H 173/98 H Pulse Oximetry 91 L 93 L 01/11/18 13:04 01/11/18 13:30 01/11/18 13:53 Temperature Pulse Rate 114 H 105 H Respiratory Rate 26 H 24 Blood Pressure Pulse Oximetry 93 L 01/11/18 13:58 01/11/18 15:28 01/11/18 16:57 Temperature Pulse Rate 114 H 134 H 144 H Respiratory Rate 25 H 24 16 Blood Pressure 159/69 H 136/98 H Pulse Oximetry 93 L 93 L 01/11/18 18:51 01/11/18 19:11 01/11/18 19:15 Temperature Pulse Rate 106 H 99 H Respiratory Rate 24 18 Blood Pressure 126/98 H 156/89 H Pulse Oximetry 93 L 94 L 96 01/11/18 20:00 01/11/18 21:00 01/11/18 22:00 Temperature 97.6 F Pulse Rate 101 H 96 H 112 H Respiratory Rate 24 Blood Pressure 150/100 H Pulse Oximetry 94 L 01/11/18 23:00 01/12/18 00:00 01/12/18 01:00 Temperature 97.6 F Pulse Rate 106 H 97 H 116 H Respiratory Rate 18 Blood Pressure 138/71 Pulse Oximetry 94 L 01/12/18 02:00 01/12/18 03:00 01/12/18 04:00 Temperature 98 F Pulse Rate 86 88 90 Respiratory Rate 20 Blood Pressure 158/72 H Pulse Oximetry 95 01/12/18 05:00 Temperature Pulse Rate 98 H Respiratory Rate Blood Pressure Pulse Oximetry Intake & Output 01/11/18 01/12/18 01/12/18 18:59 06:59 18:59 Intake Total 350 / 350 605 / 605 Output Total 325 / 325 Balance 350 / 350 280 / 280 Weight 68.039 kg 67.2 kg Intake: IV 350 / 350 125 / 125 Cardizem Inj 125 MG In NS Inj 125 / 125 100 ML @ 5 MG/HR 5 mls/hr IV. CONT TITRATE PRN Rx#:[id number] Azithromycin Inj 500 MG In NS 250 / 250 Inj 250 ML @ 250 mls/hr IV.SIG ONCE ONE Rx#:[id number] Rocephin Inj 1,000 MG In NS Inj 100 / 100 100 ML @ 200 mls/hr IV.SIG ONCE ONE Rx#:[id number] Oral 480 / 480 Output: Urine 325 / 325 Narrative: GENERAL: No distress. SKIN: Warm and dry. HEAD: Normocephalic. EYES: No scleral icterus. No injection or drainage. NECK: Supple, trachea midline. No JVD or lymphadenopathy. CARDIOVASCULAR: tachycardic, irregularly irregular rate and rhythm, no murmurs, gallops, or rubs. RESPIRATORY: tachypneic, decreased breath sounds bilaterally, mild wheeze. GASTROINTESTINAL: Abdomen soft, non-tender, nondistended. MUSCULOSKELETAL: No cyanosis, or edema. BACK: Nontender without obvious deformity. No CVA tenderness. Results - Labs CBC & Chem 7: 01/12/18 06:23 01/12/18 06:23 Laboratory Results - last 24 hr 01/11/18 01/11/18 01/11/18 13:00 13:00 13:00 WBC 5.9 RBC 5.47 H Hgb 16.0 H Hct 45.7 MCV 83.7 MCH 29.3 MCHC 35.0 RDW 14.0 Plt Count 132 L MPV 8.2 Neut % (Auto) 75.2 H Lymph % (Auto) 12.6 [place] % (Auto) 12.0 H Eos % (Auto) 0.0 Baso % (Auto) 0.2 Neut # (Auto) 4.4 Lymph # (Auto) 0.7 L [place] # (Auto) 0.7 Eos # (Auto) 0.0 Baso # (Auto) 0.0 WBC Differential . Differential Comment Auto diff final Puncture Site Patient Temperature O2 Saturation ABG pH ABG pCO2 ABG pO2 ABG HCO3 ABG O2 Content ABG Base Excess ABG Methemoglobin Raudel Test Hemoglobin Carboxyhemoglobin O2 Delivery Device Liter Flow Critical Value Sodium 138 Potassium 3.2 L Chloride 97 L Carbon Dioxide 27.4 Anion Gap 14 BUN 22 H Creatinine 1.18 H Estimated GFR 46 L Random Glucose 110 H Calcium 9.0 Magnesium 2.0 Total Bilirubin 0.6 AST 45 H ALT 30 Alkaline Phosphatase 144 H Total Creatine Kinase 87 Troponin I 0.03 B-Natriuretic Peptide 87 Total Protein 8.0 Albumin 3.3 L 01/11/18 01/11/18 01/12/18 13:30 18:40 00:30 WBC RBC Hgb Hct MCV MCH MCHC RDW Plt Count MPV Neut % (Auto) Lymph % (Auto) [place] % (Auto) Eos % (Auto) Baso % (Auto) Neut # (Auto) Lymph # (Auto) [place] # (Auto) Eos # (Auto) Baso # (Auto) WBC Differential Differential Comment Puncture Site Right radial Patient Temperature 98.6 O2 Saturation 96 ABG pH 7.45 H ABG pCO2 40 ABG pO2 91 ABG HCO3 27 H ABG O2 Content 22.8 H ABG Base Excess 3.4 H ABG Methemoglobin 0.6 Raudel Test Present Hemoglobin 17.0 H Carboxyhemoglobin 1.0 O2 Delivery Device Nasal cannula Liter Flow 3.00 Critical Value No Sodium Potassium Chloride Carbon Dioxide Anion Gap BUN Creatinine Estimated GFR Random Glucose Calcium Magnesium Total Bilirubin AST ALT Alkaline Phosphatase Total Creatine Kinase 87 90 Troponin I 0.03 0.03 B-Natriuretic Peptide Total Protein Albumin 01/12/18 01/12/18 06:23 06:23 WBC 3.3 L RBC 4.93 Hgb 14.2 Hct 41.1 MCV 83.4 MCH 28.7 MCHC 34.4 RDW 13.9 Plt Count 147 L MPV 8.2 Neut % (Auto) 81.7 H Lymph % (Auto) 13.4 [place] % (Auto) 4.8 Eos % (Auto) 0.0 Baso % (Auto) 0.1 Neut # (Auto) 2.7 Lymph # (Auto) 0.4 L [place] # (Auto) 0.2 Eos # (Auto) 0.0 Baso # (Auto) 0.0 WBC Differential . Differential Comment Auto diff final Puncture Site Patient Temperature O2 Saturation ABG pH ABG pCO2 ABG pO2 ABG HCO3 ABG O2 Content ABG Base Excess ABG Methemoglobin Raudel Test Hemoglobin Carboxyhemoglobin O2 Delivery Device Liter Flow Critical Value Sodium 142 Potassium 3.1 L Chloride 101 Carbon Dioxide 27.7 Anion Gap 13 BUN 24 H Creatinine 1.03 H Estimated GFR 54 L Random Glucose 140 H Calcium 8.7 Magnesium Total Bilirubin AST ALT Alkaline Phosphatase Total Creatine Kinase Troponin I B-Natriuretic Peptide Total Protein Albumin Microbiology 01/11/18 18:50 Nasal Wash Influenza Types A,B Antigen - Final Negative for FLU A and B antigen Infection due to influenza A or B cannot be ruled out since the antigen present in the sample may be below the detection limit of the test. - Imaging Impressions Chest X-Ray 01/11/18 12:44 CONCLUSION: 1. Bibasilar atelectasis. 2. Degenerative changes and scoliosis of the thoracolumbar spine. Chest CTA 01/11/18 14:23 CONCLUSION: 1. No evidence of pulmonary embolism. 2. There is mild patchy infiltrate in the right middle lobe and right lower lobe of concern for early pneumonia. 3. Underlying emphysema. Assessment and Plan - Assessment (1) Pneumonia Code(s): J18.9 - Pneumonia, unspecified organism Status: Acute (2) COPD exacerbation Code(s): J44.1 - Chronic obstructive pulmonary disease with (acute) exacerbation Status: Acute (3) Hypokalemia Code(s): E87.6 - Hypokalemia Status: Acute (4) Renal insufficiency Code(s): N28.9 - Disorder of kidney and ureter, unspecified Status: Acute (5) Atrial fibrillation with rapid ventricular response Code(s): I48.91 - Unspecified atrial fibrillation Status: Acute (6) Acute respiratory distress Code(s): R06.03 - Acute respiratory distress Status: Acute - Plan 67-year-old female with history of COPD, tobacco abuse, emphysema. Presented to emergency room with worsening shortness of breath, wheezing, subjective fever and chills. Was found with A. fib with RVR, new onset COPD exacerbation, underlying emphysema Pneumonia, right middle, right lower lobe. Likely community-acquired -Continue with supplemental oxygen to keep sats greater than 90. prednisone. Duo nebs every 4 as needed Continue with Zithromax and ceftriaxone. Continue to follow cultures. -Likely need walk test in 1-2 days to assess whether she will need oxygen. A. fib with RVR, new onset, possibly associated with COPD, respiratory distress [id number] score 2. Cardiology consult appreciated. -Continue with Cardizem drip and titrate to keep heart rate less than 100. We will check 2D echo. -telemetry. Renal insufficiency Hypokalemia Was given 1000 cc fluid bolus We will check BMP in the morning Avoid nephrotoxic agents -KCl 50 meq x 1. -ADAT. Hypertension, patient not on any medications. -Relatively well controlled. Monitor. Tobacco abuse Patient has been cutting down Encouraged to abstain -Tobacco abuse counseling Agoraphobia/ Anxiety Pt states she has not been out of the house in 5 years. She has severe anxiety. -Lorazepam as needed. -psych consult. Lovenox for DVT prophylaxis (1) Pneumonia Qualifiers: Pneumonia type: due to unspecified organism Laterality: right Lung location : lower lobe of lung Qualified Code(s): J18.1 - Lobar pneumonia, unspecified organism
[2018-01-12] MEDS ORDERED: Potassium Chloride 25 MEQ Effervescent Tablet PO ONE (11:00)
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
[2018-01-12] MEDS: clonazePAM 0.5 MG Tablet PO SCH ×2 (11:59→21:21)
[2018-01-12] MEDS: dilTIAZem 30 MG Tablet PO SCH ×3 (12:00→21:20)
[2018-01-12] MEDS: Sodium Chloride 0.45 % Inj 1,000 ML IV.CONT SCH ×2 (12:05→21:23)
--- NOTE | 2018-01-12 14:43 | ECHRPT ---
Indication: ATRIAL FIB/FLUTTER CONCLUSIONS Normal left ventricular size. Mild concentric left ventricular hypertrophy. The left ventricular systolic function is normal with an estimated ejection fraction in the range of 60-65%. No regional wall motion abnormalities are present. Minimal aortic valve sclerosis is present. There is trace tricuspid valve regurgitation. The estimated pulmonary arterial pressure is 31 mmHg. BP: / HR: Rhythm: Sinus MEASUREMENTS (Male / Female) Normal Values Technical Quality:Technically difficult study 2D ECHO LV Diastolic Diameter PLAX 4.4 cm 4.2 - 5.9 / 3.9 - 5.3 cm LV Systolic Diameter PLAX 3.0 cm IVS Diastolic Thickness 1.2 cm 0.6 - 1.0 / 0.6 - 0.9 cm LVPW Diastolic Thickness 1.2 cm 0.6 - 1.0 / 0.6 - 0.9 cm LV Relative Wall Thickness 0.6 RV Internal Dim ED PLAX 1.6 cm LVOT Diameter 2.0 cm Aortic Root Diameter 3.1 cm LA Systolic Diameter LX 2.6 cm 3.0 - 4.0 / 2.7 - 3.8 cm DOPPLER AV Peak Velocity 116.0 cm/s AV Peak Gradient 5.4 mmHg AV Mean Gradient 3.0 mmHg AV Velocity Time Integral 19.5 cm LVOT Peak Velocity 93.2 cm/s LVOT Peak Gradient 3.5 mmHg LVOT Velocity Time Integral 18.2 cm AV Area Cont Eq vti 2.9 cm AV Area Cont Eq pk 2.5 cm Mitral E Point Velocity 65.6 cm/s Mitral A Point Velocity 71.1 cm/s Mitral E to A Ratio 0.9 LV E' Lateral Velocity 6.0 cm/s Mitral E to LV E' Lateral Ratio 10.9 LV E' Septal Velocity 4.8 cm/s Mitral E to LV E' Septal Ratio 13.7 TR Peak Velocity 229.0 cm/s TR Peak Gradient 21.0 mmHg Right Atrial Pressure 10.0 mmHg Pulmonary Artery Systolic Pressu 31.0 mmHg Right Ventricular Systolic Press 31.0 mmHg PV Peak Velocity 69.9 cm/s PV Peak Gradient 2.0 mmHg FINDINGS LEFT VENTRICLE Normal left ventricular size. Mild concentric left ventricular hypertrophy. The left ventricular systolic function is normal with an estimated ejection fraction in the range of 60-65%. No regional wall motion abnormalities are present. RIGHT VENTRICLE Normal right ventricular size and systolic function. LEFT ATRIUM The left atrial size is normal. RIGHT ATRIUM The right atrial size is normal. ATRIAL SEPTUM No atrial level shunt is demonstrated by color flow Doppler interrogation. AORTA The aortic root and proximal ascending aorta are not well visualized. MITRAL VALVE Structurally normal mitral valve. No mitral valve stenosis or regurgitation. AORTIC VALVE Minimal aortic valve sclerosis is present. TRICUSPID VALVE There is trace tricuspid valve regurgitation. The estimated pulmonary arterial pressure is 31 mmHg. PULMONARY VALVE The pulmonary valve is not well visualized. VESSELS The inferior vena cava is normal in size. PERICARDIUM No pericardial effusion. Matt Donaldson MD (Electronically Signed) Final Date:12 January 2018 14:43
--- NOTE | 2018-01-12 14:56 | ECG ---
Date Performed: 01/11/2018 Time Performed: 12:54:46 PTAGE: 67 years EKG: Sinus rhythm with frequent prematuer atrial contractions. Left ventricular hypertrophy. Nonspecfic ST-T changes. Right atrial abnormality. When compared to previous tracing, ST-T changes and right atrial Abnormalit ies are new, as well as increased heart rate an frquent Premature atrial contractions. Clinical corre lation is recommended ABNORMAL ECG PREVIOUS TRACING : 08/30/2013 16.26 DOCTOR: Sean Jaeger Interpretating Date/Time 01/12/2018 14:55:04
[2018-01-12] MEDS: Azithromycin Inj 500 MG in Sodium Chlor 0.9% Inj 250 ML IV.SIG SCH (17:09)
[2018-01-12] MEDS: predniSONE 20 MG Tablet PO SCH (21:21)
[2018-01-13 07:58] LABS: Hematocrit 39.8 % (35.0-46.0); Hemoglobin 13.6 gm/dL (11.6-15.3); Lymph # (Auto) 0.8 th/mm3 (1.0-4.8); Lymph % (Auto) 4.5 % (9.0-44.0); Mean Corpuscular HGB Conc 34.3 % (32.0-36.0); Mean Corpuscular Hemoglobin 28.3 pg (27.0-34.0); Mean Corpuscular Volume 82.7 fL (80.0-100.0); Mean Platelet Volume 8.3 fL (7.0-11.0); Mono % (Auto) 5.6 % (0.0-8.0); Neut # (Auto) 15.3 th/mm3 (1.8-7.7); Neut % (Auto) 89.9 % (16.0-70.0); Platelet Count 204 th/mm3 (150-450); Red Blood Count 4.82 mil/mm3 (4.00-5.30); Red Cell Distribution Width 14.1 % (11.6-17.2)
[2018-01-13 08:27] LABS: Carbon Dioxide 27.3 meq/L (21.0-32.0); Phosphorus 3.2 mg/dL (2.5-4.9); Potassium 3.6 meq/L (3.5-5.1)
[2018-01-13] MEDS: dilTIAZem 30 MG Tablet PO SCH ×4 (10:13→21:19)
[2018-01-13] MEDS: predniSONE 20 MG Tablet PO SCH ×2 (10:13→21:19)
[2018-01-13] MEDS: Enoxaparin Inj 30 MG/0.3 ML Syringe SQ SCH (10:13)
[2018-01-13] MEDS: clonazePAM 0.5 MG Tablet PO SCH ×2 (10:13→21:19)
[2018-01-13] MEDS ORDERED: Lisinopril 10 MG Tablet PO SCH (12:00)
[2018-01-13] MEDS: LORazepam 0.5 MG Tablet PO PRN (13:32)
--- NOTE | 2018-01-13 13:58 | P.PNIM ---
Subjective Interval history: The patient says that she was very anxious today. She required anxiety medication. She says she still has shortness of breath. She had questions about the stress test. Discussed with nursing. Physical Exam Vital signs: Vital Signs 01/12/18 14:00 01/12/18 15:00 01/12/18 15:17 Temperature 98.1 F Pulse Rate 70 80 82 Respiratory Rate 20 Blood Pressure 153/55 H Pulse Oximetry 95 01/12/18 16:00 01/12/18 17:00 01/12/18 18:00 Temperature Pulse Rate 98 H 94 H 103 H Respiratory Rate Blood Pressure Pulse Oximetry 01/12/18 19:00 01/12/18 20:00 01/12/18 20:48 Temperature 97.5 F L Pulse Rate 96 H 100 H Respiratory Rate 20 Blood Pressure 155/94 H Pulse Oximetry 92 L 94 L 01/12/18 21:00 01/12/18 22:00 01/12/18 23:00 Temperature Pulse Rate 106 H 106 H 87 Respiratory Rate Blood Pressure Pulse Oximetry 01/13/18 00:00 01/13/18 01:00 01/13/18 02:00 Temperature Pulse Rate 70 108 H 82 Respiratory Rate 16 Blood Pressure 142/71 H Pulse Oximetry 98 01/13/18 03:00 01/13/18 04:00 01/13/18 05:00 Temperature Pulse Rate 85 72 72 Respiratory Rate 16 Blood Pressure 164/88 H Pulse Oximetry 95 01/13/18 06:00 01/13/18 10:00 01/13/18 12:00 Temperature 97.7 F 98 F Pulse Rate 100 H 96 H 81 Respiratory Rate 24 18 Blood Pressure 184/105 H 178/98 H Pulse Oximetry 100 100 Intake & Output 01/12/18 01/13/18 01/13/18 18:59 06:59 18:59 Intake Total 1974 / 1974 1240 / 1240 1000 / 1000 Output Total 1300 / 1300 500 / 500 Balance 675 / 675 740 / 740 1000 / 1000 Weight 68.4 kg Intake: IV 475 / 475 1000 / 1000 1000 / 1000 1/2 Normal Saline Inj 1,000 ML 1000 / 1000 1000 / 1000 @ 100 mls/hr IV.CONT .Q10H [facility] Rx#:[id number] Cardizem Inj 125 MG In NS Inj 125 / 125 100 ML @ 5 MG/HR 5 mls/hr IV. CONT TITRATE PRN Rx#:[id number] Azithromycin Inj 500 MG In NS 250 / 250 Inj 250 ML @ 250 mls/hr IV.SIG Q24H [facility] Rx#:[id number] Rocephin Inj 1,000 MG In NS Inj 100 / 100 100 ML @ 200 mls/hr IV.SIG Q24H [facility] Rx#:[id number] Oral 700 / 700 240 / 240 Other 800 / 800 Output: Urine 1100 / 1100 500 / 500 Stool 200 / 200 Other: Other Intake Source Saline Solution Date of Last Bowel Movement 01/12/18 01/12/18 01/13/18 # Bowel Movements 1 0 Narrative: GENERAL: Anxious. SKIN: Warm and dry. HEAD: Normocephalic. EYES: No scleral icterus. No injection or drainage. NECK: Supple, trachea midline. No JVD or lymphadenopathy. CARDIOVASCULAR: Irregularly irregular rate and rhythm, no murmurs, gallops, or rubs. RESPIRATORY: Decreased breath sounds bilaterally, mild wheeze. GASTROINTESTINAL: Abdomen soft, non-tender, nondistended. MUSCULOSKELETAL: No cyanosis, or edema. BACK: Nontender without obvious deformity. No CVA tenderness. Results - Labs CBC & Chem 7: 01/13/18 07:22 01/13/18 07:22 Laboratory Results - last 24 hr 01/13/18 01/13/18 07:22 07:22 WBC 17.0 H RBC 4.82 Hgb 13.6 Hct 39.8 MCV 82.7 MCH 28.3 MCHC 34.3 RDW 14.1 Plt Count 204 D MPV 8.3 Neut % (Auto) 89.9 H Lymph % (Auto) 4.5 L [place] % (Auto) 5.6 Eos % (Auto) 0.0 Baso % (Auto) 0.0 Neut # (Auto) 15.3 H Lymph # (Auto) 0.8 L [place] # (Auto) 1.0 H Eos # (Auto) 0.0 Baso # (Auto) 0.0 WBC Differential . Differential Comment Auto diff final Sodium 141 Potassium 3.6 Chloride 102 Carbon Dioxide 27.3 Anion Gap 12 BUN 25 H Creatinine 0.91 Estimated GFR 62 L Random Glucose 115 H Calcium 9.0 Phosphorus 3.2 Magnesium 2.0 Microbiology 01/11/18 13:30 Blood - Peripheral Aerobic Blood Culture - Preliminary No growth in 2 days 01/11/18 13:30 Blood - Peripheral Anaerobic Blood Culture - Preliminary No growth in 2 days 01/11/18 13:35 Blood - Peripheral Aerobic Blood Culture - Preliminary No growth in 2 days 01/11/18 13:35 Blood - Peripheral Anaerobic Blood Culture - Preliminary No growth in 2 days Assessment and Plan - Assessment (1) Pneumonia Code(s): J18.9 - Pneumonia, unspecified organism Status: Acute (2) COPD exacerbation Code(s): J44.1 - Chronic obstructive pulmonary disease with (acute) exacerbation Status: Acute (3) Hypokalemia Code(s): E87.6 - Hypokalemia Status: Acute (4) Renal insufficiency Code(s): N28.9 - Disorder of kidney and ureter, unspecified Status: Acute (5) Atrial fibrillation with rapid ventricular response Code(s): I48.91 - Unspecified atrial fibrillation Status: Acute (6) Acute respiratory distress Code(s): R06.03 - Acute respiratory distress Status: Acute - Plan 67-year-old female with history of COPD, tobacco abuse, emphysema. Presented to emergency room with worsening shortness of breath, wheezing, subjective fever and chills. Was found to have A. fib with RVR, new onset COPD exacerbation, underlying emphysema Pneumonia, right middle, right lower lobe. Likely community-acquired. -Continue with supplemental oxygen to keep sats greater than 90%. -prednisone BID. -Duonebs every 4 as needed -Continue with Zithromax and ceftriaxone IV. -Continue to follow cultures. -Likely need walk test in 1-2 days to assess whether she will need oxygen. A. fib with RVR, New onset, possibly associated with COPD, respiratory distress. Cardiology consult appreciated. Echo with normal EF. -Continue with Cardizem per cardiology. -stress test pending. -telemetry. Renal insufficiency/ Hypokalemia Improved. replete and monitor. Avoid nephrotoxic agents. -ADAT. Tobacco abuse Patient has been cutting down. Encouraged to abstain. Agoraphobia/ Anxiety Pt states she has not been out of the house in 5 years. She has severe anxiety. -Lorazepam as needed. -psych consult appreciated. Continue Paxil and Klonopin. Ativan as needed. Lovenox for DVT prophylaxis (1) Pneumonia Qualifiers: Pneumonia type: due to unspecified organism Laterality: right Lung location : lower lobe of lung Qualified Code(s): J18.1 - Lobar pneumonia, unspecified organism
[2018-01-13] MEDS ORDERED: Regadenoson Inj 0.4 MG/5 ML Syringe IV.PUSH ONE (14:33)
--- NOTE | 2018-01-13 14:38 | P.PNCA ---
Subjective Interval history: Resting comfortable. Son was visiting at bedside earlier. Medications and Allergies Active Medications: Active Medications Acetaminophen (Tylenol) 650 mg PO Q4H PRN PRN Reason: Temp > 100.4 Al Hydroxide/Mg Hydroxide (Milk Of Magnesia Liq) 30 ml PO Q12H PRN PRN Reason: Mild Constipation Albuterol (Duoneb Neb (Prn)) 1 ampul NEB Q4HR NEB PRN PRN Reason: WHEEZING Last Admin: 01/11/18 21:37 Dose: 1 ampul Bisacodyl (Dulcolax Supp) 10 mg RECTAL DAILY PRN PRN Reason: SEVERE CONSITIPATION Clonazepam (Klonopin) 0.5 mg PO Q12HR [facility] Last Admin: 01/13/18 10:13 Dose: 0.5 mg Clonidine HCl (Catapres) 0.1 mg PO Q6H PRN PRN Reason: SBP> OR = 180, DBP> OR = 100 Last Admin: 01/12/18 12:35 Dose: 0.1 mg Diltiazem HCl (Cardizem) 30 mg PO QID [facility] Last Admin: 01/13/18 12:13 Dose: 30 mg Enoxaparin Sodium (Lovenox Inj) 30 mg SQ DAILY [facility] Last Admin: 01/13/18 10:13 Dose: 30 mg Sodium Chloride (Ns Inj) 1,000 mls @ 0 mls/hr IV.SIG BOLUS LV Azithromycin 500 mg/ Sodium (Chloride) 250 mls @ 250 mls/hr IV.SIG Q24H [facility] Last Infusion: 01/12/18 18:10 Dose: Infused Ceftriaxone Sodium 1,000 mg/ (Sodium Chloride) 100 mls @ 200 mls/hr IV.SIG Q24H [facility] Last Infusion: 01/12/18 18:57 Dose: Infused Lactulose (Lactulose Liq) 30 ml PO DAILY PRN PRN Reason: SEVERE CONSITIPATION Lisinopril (Prinivil) 10 mg PO DAILY [facility] Last Admin: 01/13/18 12:18 Dose: 10 mg Lorazepam (Ativan) 0.5 mg PO Q8H PRN PRN Reason: ANXIETY Last Admin: 01/13/18 13:32 Dose: 0.5 mg Miscellaneous (Pill Splitter) 1 each OTHER UNSCH [facility] Ondansetron HCl (Zofran Inj) 4 mg IV.PUSH Q6H PRN PRN Reason: NAUSEA OR VOMITING Paroxetine HCl (Paxil) 10 mg PO DAILY [facility] Last Admin: 01/13/18 10:13 Dose: 10 mg Prednisone (Deltasone) 20 mg PO BID [facility] Last Admin: 01/13/18 10:13 Dose: 20 mg Sennosides (Senokot) 17.2 mg PO Q12H PRN PRN Reason: Moderate Constipation Allergies Allergy/AdvReac Type Severity Reaction Status Date / Time No Known Allergies Allergy Verified 01/11/18 12:32 Home Medications Medication Instructions Recorded Confirmed Type No Known Home Medications 01/11/18 01/11/18 History Physical Exam Vital signs: Vital Signs 01/12/18 15:00 01/12/18 15:17 01/12/18 16:00 Temperature 98.1 F Pulse Rate 80 82 98 H Respiratory Rate 20 Blood Pressure 153/55 H Pulse Oximetry 95 01/12/18 17:00 01/12/18 18:00 01/12/18 19:00 Temperature Pulse Rate 94 H 103 H 96 H Respiratory Rate Blood Pressure Pulse Oximetry 01/12/18 20:00 01/12/18 20:48 01/12/18 21:00 Temperature 97.5 F L Pulse Rate 100 H 106 H Respiratory Rate 20 Blood Pressure 155/94 H Pulse Oximetry 92 L 94 L 01/12/18 22:00 01/12/18 23:00 01/13/18 00:00 Temperature Pulse Rate 106 H 87 70 Respiratory Rate 16 Blood Pressure 142/71 H Pulse Oximetry 98 01/13/18 01:00 01/13/18 02:00 01/13/18 03:00 Temperature Pulse Rate 108 H 82 85 Respiratory Rate Blood Pressure Pulse Oximetry 01/13/18 04:00 01/13/18 05:00 01/13/18 06:00 Temperature Pulse Rate 72 72 100 H Respiratory Rate 16 Blood Pressure 164/88 H Pulse Oximetry 95 01/13/18 10:00 01/13/18 12:00 Temperature 97.7 F 98 F Pulse Rate 96 H 81 Respiratory Rate 24 18 Blood Pressure 184/105 H 178/98 H Pulse Oximetry 100 100 Intake & Output 01/12/18 01/13/18 01/13/18 18:59 06:59 18:59 Intake Total 1974 / 1974 1240 / 1240 1000 / 1000 Output Total 1300 / 1300 500 / 500 Balance 675 / 675 740 / 740 1000 / 1000 Weight 68.4 kg Intake: IV 475 / 475 1000 / 1000 1000 / 1000 1/2 Normal Saline Inj 1,000 ML 1000 / 1000 1000 / 1000 @ 100 mls/hr IV.CONT .Q10H [facility] Rx#:[id number] Cardizem Inj 125 MG In NS Inj 125 / 125 100 ML @ 5 MG/HR 5 mls/hr IV. CONT TITRATE PRN Rx#:[id number] Azithromycin Inj 500 MG In NS 250 / 250 Inj 250 ML @ 250 mls/hr IV.SIG Q24H [facility] Rx#:[id number] Rocephin Inj 1,000 MG In NS Inj 100 / 100 100 ML @ 200 mls/hr IV.SIG Q24H [facility] Rx#:[id number] Oral 700 / 700 240 / 240 Other 800 / 800 Output: Urine 1100 / 1100 500 / 500 Stool 200 / 200 Other: Other Intake Source Saline Solution Date of Last Bowel Movement 01/12/18 01/12/18 01/13/18 # Bowel Movements 1 0 - Constitutional no acute distress, chronically ill appearing - Routine HEENT Exam Head: Present: normocephalic Eye: Present: EOMI, PERRL ENT: Present: mucous membranes moist - Routine Neck Exam Present: supple, full ROM. Absent: JVD, carotid bruit - Routine Respiratory Exam Present: CTA bilaterally - Routine Cardiovascular Exam Present: RRR, S1, S2 - Routine Abdominal Exam Present: soft - Routine Extremities Exam Present: tenderness - Routine Skin Exam Present: intact - Routine Neurological Exam Present: alert, oriented X3 Results 01/13/18 07:22 01/13/18 07:22 Cardiac Enzymes 01/11/18 01/11/18 01/12/18 Range/Units 13:00 18:40 00:30 Troponin I 0.03 0.03 (0.02-0.05) ng/mL B-Natriuretic Peptide 87 (0-100) pg/mL Coagulation 01/11/18 Range/Units 13:00 B-Natriuretic Peptide 87 (0-100) pg/mL CBC 01/12/18 01/13/18 Range/Units 06:23 07:22 WBC 3.3 L 17.0 H (4.0-11.0) th/mm3 RBC 4.93 4.82 (4.00-5.30) mil/mm3 Hgb 14.2 13.6 (11.6-15.3) gm/dL Hct 41.1 39.8 (35.0-46.0) % Plt Count 147 L 204 D (150-450) th/mm3 Neut # (Auto) 2.7 15.3 H (1.8-7.7) th/mm3 Lymph # (Auto) 0.4 L 0.8 L (1.0-4.8) th/mm3 [place] # (Auto) 0.2 1.0 H (0.0-0.9) th/mm3 Eos # (Auto) 0.0 0.0 (0.0-0.4) th/mm3 Baso # (Auto) 0.0 0.0 (0.0-0.2) th/mm3 Comprehensive Metabolic Panel 01/12/18 01/13/18 Range/Units 06:23 07:22 Sodium 142 141 (136-145) meq/L Potassium 3.1 L 3.6 (3.5-5.1) meq/L Chloride 101 102 (98-107) meq/L Carbon Dioxide 27.7 27.3 (21.0-32.0) meq/L BUN 24 H 25 H (7-18) mg/dL Creatinine 1.03 H 0.91 (0.50-1.00) mg/dL Calcium 8.7 9.0 (8.5-10.1) mg/dL Intake and Output 01/12/18 01/13/18 01/13/18 22:59 06:59 14:59 Intake Total 2850 / 2850 240 / 240 1000 / 1000 Output Total 1300 / 1300 500 / 500 Balance 1550 / 1550 -260 / -260 1000 / 1000 Intake: IV 1350 / 1350 1000 / 1000 1/2 Normal Saline Inj 1,000 ML 1000 / 1000 1000 / 1000 @ 100 mls/hr IV.CONT .Q10H [facility] Rx#:[id number] Azithromycin Inj 500 MG In NS 250 / 250 Inj 250 ML @ 250 mls/hr IV.SIG Q24H [facility] Rx#:[id number] Rocephin Inj 1,000 MG In NS Inj 100 / 100 100 ML @ 200 mls/hr IV.SIG Q24H [facility] Rx#:[id number] Oral 700 / 700 240 / 240 Other 800 / 800 Output: Urine 1100 / 1100 500 / 500 Stool 200 / 200 Other: Other Intake Source Saline Solution Date of Last Bowel Movement 01/12/18 01/12/18 01/13/18 # Bowel Movements 1 0 Weight 68.4 kg - Imaging and Cardiology Imaging: Impressions Chest CTA 01/11/18 14:23 CONCLUSION: 1. No evidence of pulmonary embolism. 2. There is mild patchy infiltrate in the right middle lobe and right lower lobe of concern for early pneumonia. 3. Underlying emphysema. Assessment and Plan - Plan 67 yo WF with no prior cardiac history, COPD and tobacco abuse presented with progressive dyspnea x 1 week. She reports feeling SOB chronically but in the past several days this has progressed to dyspnea at rest. She admits to feeling palpitations intermittently for years lately more frequent. She is a daily smoker. Denies chest pain, edema or syncope. Reported significant family history with her sister having an OH age 39 and mother passing away from a OH in her 50's. EKG upon arrival in ED showed afib RVR HR 140-150bpm. chest films indicate possible pneumonia. Troponin x 3 negative. CTA negative for P.E. Currently tachypneic at rest, no chest pain afib RVR- rate improved but remaining 80-110bpm, Off IV Cardizem, BP high. Will add Metoprolol 50 mg BID> no chest pain CHADS-Vasc score = 2 (age+gender); consider anticoagulation before discharge 01/12/18 Echo showed LVEF 55%, no significant valvular disease. Pending nuclear stress testing COPD- cont breathing treatments, abx for possible PNA I am covering for [facility] cardiology this weekend.
--- NOTE | 2018-01-13 15:53 | NM ---
EXAM DATE: 01/13/2018 1:22 PM EDT AGE/SEX: 67 years / Female INDICATIONS:Abnormal EKG. . Dyspnea. CLINICAL DATA: This is the patient's initial encounter. Patient reports that signs and symptoms have been present for 1 day and indicates a pain score of 0/10. MEDICAL/SURGICAL HISTORY: Hypertension. Chronic obstructive pulmonary disease. Smoker. Hyster ectomy. COMPARISON: No prior exams available for comparison. DOSE: 8.7 mCi Tc 99m Myoview at rest 27.1 mCi [id number] at stress 0.4 mg Lexiscan STRESS SYMPTOMS: Dyspnea and neck pressure. EJECTION FRACTION: 51 % TECHNIQUE: The patient underwent pharmacologic stress with infusion of prescribed dose. Continuous ECG tracing was monitored during stress. Gated SPECT imaging was performed after stress and conventi onal SPECT imaging was performed at rest. The examination was performed on a SPECT/CT scanner, both attenuation and non-corrected datasets were reviewed. FINDINGS: Distribution: The maximum perfused segment at stress is in the inferior wall. Perfusion Study: The pattern of perfusion at stress is within normal limits. Gated Study: There are intact wall motion and wall thickening without hypokinetic or dyskinetic segm ents. The ejection fraction is calculated at 51%. RISK CATEGORY: Low (<1% Annual Motality Rate) CONCLUSION: 1. Unremarkable myocardial perfusion examination. Electronically signed by: Javier Mcclellan MD 01/13/2018 3:52 PM EDT
[2018-01-13] MEDS ORDERED: Lisinopril 10 MG Tablet PO ONE (16:25)
[2018-01-13] MEDS: Metoprolol Tartrate 50 MG Tablet PO SCH (16:27)
[2018-01-13] MEDS: Azithromycin Inj 500 MG in Sodium Chlor 0.9% Inj 250 ML IV.SIG SCH (17:38)
[2018-01-14 07:13] LABS: Baso % (Auto) 0.1 % (0.0-2.0); Hematocrit 38.7 % (35.0-46.0); Hemoglobin 13.2 gm/dL (11.6-15.3); Lymph # (Auto) 0.7 th/mm3 (1.0-4.8); Lymph % (Auto) 6.2 % (9.0-44.0); Mean Corpuscular HGB Conc 34.2 % (32.0-36.0); Mean Corpuscular Hemoglobin 28.5 pg (27.0-34.0); Mean Corpuscular Volume 83.4 fL (80.0-100.0); Mean Platelet Volume 8.1 fL (7.0-11.0); Mono # (Auto) 0.8 th/mm3 (0.0-0.9); Mono % (Auto) 7.2 % (0.0-8.0); Neut # (Auto) 10.1 th/mm3 (1.8-7.7); Neut % (Auto) 86.5 % (16.0-70.0); Platelet Count 218 th/mm3 (150-450); Red Blood Count 4.64 mil/mm3 (4.00-5.30); White Blood Count 11.7 th/mm3 (4.0-11.0)
[2018-01-14 07:35] LABS: Calcium 8.9 mg/dL (8.5-10.1); Carbon Dioxide 30.2 meq/L (21.0-32.0); Potassium 3.7 meq/L (3.5-5.1)
[2018-01-14] MEDS: Metoprolol Tartrate 50 MG Tablet PO SCH ×2 (09:27→21:00)
[2018-01-14] MEDS: Lisinopril 20 MG Tablet PO SCH (09:27)
--- NOTE | 2018-01-14 09:27 | P.PNIM ---
Subjective Interval history: The patient was receiving a breathing treatment. She says her anxiety was poorly controlled. She said she would be interested in starting a blood thinner. Physical Exam Vital signs: Vital Signs 01/13/18 10:00 01/13/18 11:00 01/13/18 12:00 Temperature 97.7 F 98 F Pulse Rate 106 H 101 H 70 Respiratory Rate 24 18 Blood Pressure 184/105 H 178/98 H Pulse Oximetry 100 100 01/13/18 13:00 01/13/18 14:00 01/13/18 15:00 Temperature Pulse Rate 94 H 98 H 94 H Respiratory Rate Blood Pressure Pulse Oximetry 01/13/18 16:00 01/13/18 16:37 01/13/18 17:00 Temperature 98.2 F Pulse Rate 98 H 96 H 101 H Respiratory Rate 18 Blood Pressure 199/103 H Pulse Oximetry 100 01/13/18 18:00 01/13/18 19:00 01/13/18 20:00 Temperature 97.9 F Pulse Rate 71 89 114 H Respiratory Rate 20 Blood Pressure 178/97 H Pulse Oximetry 93 L 01/13/18 21:00 01/13/18 22:00 01/13/18 23:00 Temperature Pulse Rate 68 64 62 Respiratory Rate Blood Pressure Pulse Oximetry 01/13/18 23:53 01/14/18 00:00 01/14/18 01:00 Temperature Pulse Rate 85 86 60 Respiratory Rate 16 Blood Pressure 133/86 Pulse Oximetry 93 L 01/14/18 02:00 01/14/18 03:00 01/14/18 04:00 Temperature Pulse Rate 60 72 72 Respiratory Rate 16 Blood Pressure 152/81 H Pulse Oximetry 99 01/14/18 05:00 01/14/18 06:00 01/14/18 07:00 Temperature Pulse Rate 92 H 64 68 Respiratory Rate Blood Pressure Pulse Oximetry 01/14/18 09:12 Temperature Pulse Rate 90 Respiratory Rate 15 Blood Pressure Pulse Oximetry 88 L Intake & Output 01/13/18 01/14/18 01/14/18 18:59 06:59 18:59 Intake Total 1240 / 1240 830 / 830 Output Total 1000 / 1000 700 / 700 Balance 240 / 240 130 / 130 Weight 66.7 kg Intake: IV 1000 / 1000 350 / 350 1/2 Normal Saline Inj 1,000 ML 1000 / 1000 @ 100 mls/hr IV.CONT .Q10H [facility] Rx#:[id number] Azithromycin Inj 500 MG In NS 250 / 250 Inj 250 ML @ 250 mls/hr IV.SIG Q24H [facility] Rx#:[id number] Rocephin Inj 1,000 MG In NS Inj 100 / 100 100 ML @ 200 mls/hr IV.SIG Q24H [facility] Rx#:[id number] Oral 240 / 240 480 / 480 Output: Urine 1000 / 1000 700 / 700 Other: Date of Last Bowel Movement 01/13/18 01/13/18 # Bowel Movements 4 0 Narrative: GENERAL: Anxious. SKIN: Warm and dry. HEAD: Normocephalic. EYES: No scleral icterus. No injection or drainage. NECK: Supple, trachea midline. No JVD or lymphadenopathy. CARDIOVASCULAR: Irregularly irregular rate and rhythm, no murmurs, gallops, or rubs. RESPIRATORY: Decreased breath sounds bilaterally, mild wheeze. GASTROINTESTINAL: Abdomen soft, non-tender, nondistended. MUSCULOSKELETAL: No cyanosis, or edema. BACK: Nontender without obvious deformity. No CVA tenderness. Results - Labs CBC & Chem 7: 01/14/18 05:35 01/14/18 05:35 Laboratory Results - last 24 hr 01/14/18 01/14/18 05:35 05:35 WBC 11.7 H RBC 4.64 Hgb 13.2 Hct 38.7 MCV 83.4 MCH 28.5 MCHC 34.2 RDW 14.0 Plt Count 218 MPV 8.1 Neut % (Auto) 86.5 H Lymph % (Auto) 6.2 L [place] % (Auto) 7.2 Eos % (Auto) 0.0 Baso % (Auto) 0.1 Neut # (Auto) 10.1 H Lymph # (Auto) 0.7 L [place] # (Auto) 0.8 Eos # (Auto) 0.0 Baso # (Auto) 0.0 WBC Differential . Differential Comment Auto diff final Sodium 142 Potassium 3.7 Chloride 103 Carbon Dioxide 30.2 Anion Gap 9 BUN 26 H Creatinine 0.82 Estimated GFR 70 L Random Glucose 100 Calcium 8.9 Microbiology 01/11/18 13:30 Blood - Peripheral Aerobic Blood Culture - Preliminary No growth in 2 days 01/11/18 13:30 Blood - Peripheral Anaerobic Blood Culture - Preliminary No growth in 2 days 01/11/18 13:35 Blood - Peripheral Aerobic Blood Culture - Preliminary No growth in 2 days 01/11/18 13:35 Blood - Peripheral Anaerobic Blood Culture - Preliminary No growth in 2 days - Imaging Impressions Myocardial Perfusion Scan Nuc Med 01/13/18 00:00 CONCLUSION: 1. Unremarkable myocardial perfusion examination. Assessment and Plan - Assessment (1) Pneumonia Code(s): J18.9 - Pneumonia, unspecified organism Status: Acute (2) COPD exacerbation Code(s): J44.1 - Chronic obstructive pulmonary disease with (acute) exacerbation Status: Acute (3) Hypokalemia Code(s): E87.6 - Hypokalemia Status: Acute (4) Renal insufficiency Code(s): N28.9 - Disorder of kidney and ureter, unspecified Status: Acute (5) Atrial fibrillation with rapid ventricular response Code(s): I48.91 - Unspecified atrial fibrillation Status: Acute (6) Acute respiratory distress Code(s): R06.03 - Acute respiratory distress Status: Acute - Plan 67-year-old female with history of COPD, tobacco abuse, emphysema. Presented to emergency room with worsening shortness of breath, wheezing, subjective fever and chills. Was found to have A. fib with RVR, new onset COPD exacerbation, underlying emphysema Pneumonia, right middle, right lower lobe. Likely community-acquired. -Continue with supplemental oxygen to keep sats greater than 90%. Currently on 6 L nasal cannula. -IV Solu-Medrol. -Duonebs standing and as needed -Continue with Zithromax and ceftriaxone IV. -Continue to follow cultures. -Repeat chest x-ray. -Incentive spirometry. -Encourage ambulation. A. fib with RVR, New onset, possibly associated with COPD, respiratory distress. Cardiology consult appreciated. Echo with normal EF. Stress test negative. -Continue with Cardizem and Lopressor per cardiology. -telemetry. -Patient agreeable with anticoagulation. Will start Eliquis. Case management consult to see if covered. Renal insufficiency/ Hypokalemia Improved. replete and monitor. Avoid nephrotoxic agents. -ADAT. Tobacco abuse Patient has been cutting down. Encouraged to abstain. Agoraphobia/ Anxiety Pt states she has not been out of the house in 5 years. She has severe anxiety. -Lorazepam as needed. -psych consult appreciated. Continue Paxil and Klonopin. Ativan as needed. PPx: Eliquis Discharge Planning: Awaiting improvement in respiratory status (1) Pneumonia Qualifiers: Pneumonia type: due to unspecified organism Laterality: right Lung location : lower lobe of lung Qualified Code(s): J18.1 - Lobar pneumonia, unspecified organism
[2018-01-14] MEDS: dilTIAZem 30 MG Tablet PO SCH ×4 (09:28→21:39)
[2018-01-14] MEDS: clonazePAM 0.5 MG Tablet PO SCH ×2 (09:28→21:39)
[2018-01-14] MEDS: predniSONE 20 MG Tablet PO SCH (10:33)
[2018-01-14] MEDS: Enoxaparin Inj 30 MG/0.3 ML Syringe SQ SCH (10:33)
--- NOTE | 2018-01-14 12:55 | XR ---
EXAM DATE: 01/14/2018 9:25 AM EDT AGE/SEX: 67 years / Female INDICATIONS: COPD. Short of breath. CLINICAL DATA: This is the patient's subsequent encounter. Patient reports that signs and symptoms h ave been present for 1 day and indicates a pain score of 0/10. MEDICAL/SURGICAL HISTORY: . Emphysema. Tubal ligation None. COMPARISON: [facility] [place]ST 1V SINGLE AP, 01/11/2018. . FINDINGS: A single AP view of the chest demonstrates the lungs to be symmetrically aerated without evidence of mass, infiltrate or effusion. There continues to be hyperaeration of both lung siegel. The cardiomedi astinal contours are unremarkable. Osseous structures are intact. Stable compared to the prior stud y. CONCLUSION: No acute intrathoracic disease. Stable examination compared to the prior study. Electronically signed by: Javier Mcclellan MD 01/14/2018 12:54 PM EDT
[2018-01-14] MEDS: MethylPREDNISolone Sod Succinate Inj 40 MG/ML Vial IV.PUSH SCH ×2 (14:30→21:41)
--- NOTE | 2018-01-14 15:30 | P.PNCA ---
Subjective Interval history: " I am fine, I am tired", no acute event. TEle showed NSR. Medications and Allergies Active Medications: Active Medications Acetaminophen (Tylenol) 650 mg PO Q4H PRN PRN Reason: Temp > 100.4 Al Hydroxide/Mg Hydroxide (Milk Of Magnesia Liq) 30 ml PO Q12H PRN PRN Reason: Mild Constipation Albuterol (Duoneb Neb (Prn)) 1 ampul NEB Q4HR NEB PRN PRN Reason: WHEEZING Last Admin: 01/14/18 09:09 Dose: 1 ampul Albuterol (Duoneb Neb (Alexys)) 1 ampul NEB Q6HR WHILE AWAKE NEB [facility] Last Admin: 01/14/18 14:18 Dose: Not Given Apixaban (Eliquis) 5 mg PO BID [facility] Last Admin: 01/14/18 10:44 Dose: 5 mg Bisacodyl (Dulcolax Supp) 10 mg RECTAL DAILY PRN PRN Reason: SEVERE CONSITIPATION Clonazepam (Klonopin) 0.5 mg PO Q12HR [facility] Last Admin: 01/14/18 09:28 Dose: 0.5 mg Clonidine HCl (Catapres) 0.1 mg PO Q6H PRN PRN Reason: SBP> OR = 180, DBP> OR = 100 Last Admin: 01/13/18 21:19 Dose: 0.1 mg Diltiazem HCl (Cardizem) 30 mg PO QID [facility] Last Admin: 01/14/18 14:30 Dose: Not Given Sodium Chloride (Ns Inj) 1,000 mls @ 0 mls/hr IV.SIG BOLUS [facility] Azithromycin 500 mg/ Sodium (Chloride) 250 mls @ 250 mls/hr IV.SIG Q24H [facility] Last Infusion: 01/13/18 19:07 Dose: Infused Ceftriaxone Sodium 1,000 mg/ (Sodium Chloride) 100 mls @ 200 mls/hr IV.SIG Q24H [facility] Last Infusion: 01/13/18 19:12 Dose: Infused Lactulose (Lactulose Liq) 30 ml PO DAILY PRN PRN Reason: SEVERE CONSITIPATION Lisinopril (Prinivil) 20 mg PO DAILY [facility] Last Admin: 01/14/18 09:27 Dose: 20 mg Lorazepam (Ativan) 0.5 mg PO Q8H PRN PRN Reason: ANXIETY Last Admin: 01/13/18 13:32 Dose: 0.5 mg Methylprednisolone Sodium Succinate (Solumedrol Inj) 40 mg IV.PUSH Q8HR [facility] Last Admin: 01/14/18 14:30 Dose: 40 mg Metoprolol Tartrate (Lopressor) 50 mg PO BID [facility] Last Admin: 01/14/18 09:27 Dose: 50 mg Miscellaneous (Pill Splitter) 1 each OTHER UNSCH [facility] Ondansetron HCl (Zofran Inj) 4 mg IV.PUSH Q6H PRN PRN Reason: NAUSEA OR VOMITING Paroxetine HCl (Paxil) 10 mg PO DAILY [facility] Last Admin: 01/14/18 09:27 Dose: 10 mg Sennosides (Senokot) 17.2 mg PO Q12H PRN PRN Reason: Moderate Constipation Allergies Allergy/AdvReac Type Severity Reaction Status Date / Time No Known Allergies Allergy Verified 01/11/18 12:32 Home Medications Medication Instructions Recorded Confirmed Type No Known Home Medications 01/11/18 01/11/18 History Physical Exam Vital signs: Vital Signs 01/13/18 16:00 01/13/18 16:37 01/13/18 17:00 Temperature 98.2 F Pulse Rate 98 H 96 H 101 H Respiratory Rate 18 Blood Pressure 199/103 H Pulse Oximetry 100 01/13/18 18:00 01/13/18 19:00 01/13/18 20:00 Temperature 97.9 F Pulse Rate 71 89 114 H Respiratory Rate 20 Blood Pressure 178/97 H Pulse Oximetry 93 L 01/13/18 21:00 01/13/18 22:00 01/13/18 23:00 Temperature Pulse Rate 68 64 62 Respiratory Rate Blood Pressure Pulse Oximetry 01/13/18 23:53 01/14/18 00:00 01/14/18 01:00 Temperature Pulse Rate 85 86 60 Respiratory Rate 16 Blood Pressure 133/86 Pulse Oximetry 93 L 01/14/18 02:00 01/14/18 03:00 01/14/18 04:00 Temperature Pulse Rate 60 72 72 Respiratory Rate 16 Blood Pressure 152/81 H Pulse Oximetry 99 01/14/18 05:00 01/14/18 06:00 01/14/18 07:00 Temperature Pulse Rate 92 H 64 68 Respiratory Rate Blood Pressure Pulse Oximetry 01/14/18 08:40 01/14/18 09:12 01/14/18 11:00 Temperature 98.2 F Pulse Rate 86 90 71 Respiratory Rate 16 15 Blood Pressure 180/92 H Pulse Oximetry 90 L 88 L 01/14/18 12:00 Temperature 98 F Pulse Rate 67 Respiratory Rate 18 Blood Pressure 130/70 Pulse Oximetry 98 Intake & Output 01/13/18 01/14/18 01/14/18 18:59 06:59 18:59 Intake Total 1240 / 1240 830 / 830 Output Total 1000 / 1000 700 / 700 Balance 240 / 240 130 / 130 Weight 66.7 kg Intake: IV 1000 / 1000 350 / 350 1/2 Normal Saline Inj 1,000 ML 1000 / 1000 @ 100 mls/hr IV.CONT .Q10H [facility] Rx#:[id number] Azithromycin Inj 500 MG In NS 250 / 250 Inj 250 ML @ 250 mls/hr IV.SIG Q24H [facility] Rx#:[id number] Rocephin Inj 1,000 MG In NS Inj 100 / 100 100 ML @ 200 mls/hr IV.SIG Q24H [facility] Rx#:[id number] Oral 240 / 240 480 / 480 Output: Urine 1000 / 1000 700 / 700 Other: Date of Last Bowel Movement 01/13/18 01/13/18 01/14/18 # Bowel Movements 4 0 - Constitutional no acute distress - Routine HEENT Exam Head: Present: normocephalic Eye: Present: EOMI, PERRL ENT: Present: mucous membranes moist - Routine Neck Exam Present: supple, full ROM. Absent: JVD, carotid bruit - Routine Respiratory Exam Present: CTA bilaterally - Routine Cardiovascular Exam Present: RRR, S1, S2 - Routine Abdominal Exam Present: soft, normoactive bowel sounds - Routine Extremities Exam Present: full ROM, normal capillary refill - Routine Skin Exam Present: intact, dry, warm - Routine Neurological Exam Present: alert, oriented X3, CN II-XII intact Results 01/14/18 05:35 01/14/18 05:35 CBC 01/13/18 01/14/18 Range/Units 07:22 05:35 WBC 17.0 H 11.7 H (4.0-11.0) th/mm3 RBC 4.82 4.64 (4.00-5.30) mil/mm3 Hgb 13.6 13.2 (11.6-15.3) gm/dL Hct 39.8 38.7 (35.0-46.0) % Plt Count 204 D 218 (150-450) th/mm3 Neut # (Auto) 15.3 H 10.1 H (1.8-7.7) th/mm3 Lymph # (Auto) 0.8 L 0.7 L (1.0-4.8) th/mm3 [place] # (Auto) 1.0 H 0.8 (0.0-0.9) th/mm3 Eos # (Auto) 0.0 0.0 (0.0-0.4) th/mm3 Baso # (Auto) 0.0 0.0 (0.0-0.2) th/mm3 Comprehensive Metabolic Panel 01/13/18 01/14/18 Range/Units 07:22 05:35 Sodium 141 142 (136-145) meq/L Potassium 3.6 3.7 (3.5-5.1) meq/L Chloride 102 103 (98-107) meq/L Carbon Dioxide 27.3 30.2 (21.0-32.0) meq/L BUN 25 H 26 H (7-18) mg/dL Creatinine 0.91 0.82 (0.50-1.00) mg/dL Calcium 9.0 8.9 (8.5-10.1) mg/dL Intake and Output 01/14/18 01/14/18 01/14/18 06:59 14:59 22:59 Intake Total 480 / 480 Output Total 700 / 700 Balance -220 / -220 Intake: Oral 480 / 480 Output: Urine 700 / 700 Other: Date of Last Bowel Movement 01/13/18 01/14/18 # Bowel Movements 0 Weight 66.7 kg - Imaging and Cardiology Imaging: Impressions Myocardial Perfusion Scan Nuc Med 01/13/18 00:00 CONCLUSION: 1. Unremarkable myocardial perfusion examination. Chest X-Ray 01/14/18 09:25 CONCLUSION: No acute intrathoracic disease. Stable examination compared to the prior study. Assessment and Plan - Assessment (1) Atrial fibrillation with rapid ventricular response Code(s): I48.91 - Unspecified atrial fibrillation Status: Acute (2) Acute respiratory distress Code(s): R06.03 - Acute respiratory distress Status: Acute (3) COPD exacerbation Code(s): J44.1 - Chronic obstructive pulmonary disease with (acute) exacerbation Status: Acute (4) Pneumonia Code(s): J18.9 - Pneumonia, unspecified organism Status: Acute (5) Anxiety state, unspecified Code(s): F41.1 - Generalized anxiety disorder Status: Acute - Plan 67 yo WF with no prior cardiac history, COPD and tobacco abuse presented with progressive dyspnea x 1 week. She reports feeling SOB chronically but in the past several days this has progressed to dyspnea at rest. She admits to feeling palpitations intermittently for years lately more frequent. She is a daily smoker. Denies chest pain, edema or syncope. Reported significant family history with her sister having an MS age 39 and mother passing away from a MS in her 50's. EKG upon arrival in ED showed afib RVR HR 140-150bpm. chest films indicate possible pneumonia. Troponin x 3 negative. CTA negative for P.E. Currently tachypneic at rest, no chest pain afib RVR Currently in sinus rhythm continue Metoprolol 50 mg BID CHADS-Vasc score = 2 (age+gender); Eliquis 50 mg BID started. 01/12/18 Echo showed LVEF 55%, no significant valvular disease. 01/13/18 nuclear stress showed no ischemia. COPD- cont breathing treatments, abx for possible PNA I am covering for [facility] cardiology this weekend. (4) Pneumonia Qualifiers: Pneumonia type: due to unspecified organism Laterality: right Lung location : lower lobe of lung Qualified Code(s): J18.1 - Lobar pneumonia, unspecified organism
[2018-01-14] MEDS: Azithromycin Inj 500 MG in Sodium Chlor 0.9% Inj 250 ML IV.SIG SCH (16:08)
[2018-01-15] MEDS: LORazepam 0.5 MG Tablet PO PRN ×2 (03:00→13:38)
[2018-01-15] MEDS: MethylPREDNISolone Sod Succinate Inj 40 MG/ML Vial IV.PUSH SCH ×2 (05:38→21:10)
--- NOTE | 2018-01-15 07:50 | P.PNCA ---
Subjective Interval history: Patient continues to feel tired, wheezy, and short of breath. She denies any chest pain, palpitations, passing out. Metoprolol held overnight for heart rate 40s. Telemetry overnight with short atrial runs and 4 beats NSVT. Medications and Allergies Allergies Allergy/AdvReac Type Severity Reaction Status Date / Time No Known Allergies Allergy Verified 01/11/18 12:32 Home Medications Medication Instructions Recorded Confirmed Type No Known Home Medications 01/11/18 01/11/18 History Active Medications: Active Medications Acetaminophen (Tylenol) 650 mg PO Q4H PRN PRN Reason: Temp > 100.4 Al Hydroxide/Mg Hydroxide (Milk Of Magnesia Liq) 30 ml PO Q12H PRN PRN Reason: Mild Constipation Albuterol (Duoneb Neb (Prn)) 1 ampul NEB Q4HR NEB PRN PRN Reason: WHEEZING Last Admin: 01/14/18 09:09 Dose: 1 ampul Albuterol (Duoneb Neb (Alexys)) 1 ampul NEB Q6HR WHILE AWAKE NEB [facility] Last Admin: 01/14/18 20:45 Dose: Not Given Apixaban (Eliquis) 5 mg PO BID [facility] Last Admin: 01/14/18 21:39 Dose: 5 mg Bisacodyl (Dulcolax Supp) 10 mg RECTAL DAILY PRN PRN Reason: SEVERE CONSITIPATION Clonazepam (Klonopin) 0.5 mg PO Q12HR [facility] Last Admin: 01/14/18 21:39 Dose: 0.5 mg Clonidine HCl (Catapres) 0.1 mg PO Q6H PRN PRN Reason: SBP> OR = 180, DBP> OR = 100 Last Admin: 01/13/18 21:19 Dose: 0.1 mg Diltiazem HCl (Cardizem Cd 24hr) 120 mg PO DAILY [facility] Sodium Chloride (Ns Inj) 1,000 mls @ 0 mls/hr IV.SIG BOLUS [facility] Azithromycin 500 mg/ Sodium (Chloride) 250 mls @ 250 mls/hr IV.SIG Q24H [facility] Last Infusion: 01/14/18 18:36 Dose: Infused Ceftriaxone Sodium 1,000 mg/ (Sodium Chloride) 100 mls @ 200 mls/hr IV.SIG Q24H [facility] Last Infusion: 01/14/18 18:36 Dose: Infused Lactulose (Lactulose Liq) 30 ml PO DAILY PRN PRN Reason: SEVERE CONSITIPATION Lisinopril (Prinivil) 20 mg PO DAILY [facility] Last Admin: 01/14/18 09:27 Dose: 20 mg Lorazepam (Ativan) 0.5 mg PO Q8H PRN PRN Reason: ANXIETY Last Admin: 01/15/18 03:00 Dose: 0.5 mg Methylprednisolone Sodium Succinate (Solumedrol Inj) 40 mg IV.PUSH Q8HR [facility] Last Admin: 01/15/18 05:38 Dose: 40 mg Metoprolol Tartrate (Lopressor) 50 mg PO BID [facility] Last Admin: 01/14/18 21:00 Dose: Not Given Miscellaneous (Pill Splitter) 1 each [facility] Ondans[facility]ron HCl (Zofran Inj) 4 mg IV.PUSH Q6H PRN PRN Reason: NAUSEA OR VOMITING Paroxetine HCl (Paxil) 10 mg PO DAILY [facility] Last Admin: 01/14/18 09:27 Dose: 10 mg Sennosides (Senokot) 17.2 mg PO Q12H PRN PRN Reason: Moderate Constipation Physical Exam Vital signs: Vital Signs 01/14/18 08:00 01/14/18 08:40 01/14/18 09:00 Temperature 98.2 F Pulse Rate 80 86 84 Respiratory Rate 16 Blood Pressure 180/92 H Pulse Oximetry 90 L 01/14/18 09:12 01/14/18 10:00 01/14/18 11:00 Temperature Pulse Rate 90 80 71 Respiratory Rate 15 Blood Pressure Pulse Oximetry 88 L 01/14/18 12:00 01/14/18 13:00 01/14/18 14:00 Temperature 98 F Pulse Rate 64 62 54 L Respiratory Rate 18 Blood Pressure 130/70 Pulse Oximetry 98 01/14/18 15:00 01/14/18 16:00 01/14/18 17:00 Temperature 97.7 F Pulse Rate 71 64 64 Respiratory Rate 18 Blood Pressure 136/81 Pulse Oximetry 100 01/14/18 19:00 01/14/18 20:00 01/14/18 21:00 Temperature 98 F Pulse Rate 59 L 72 64 Respiratory Rate 18 Blood Pressure 137/74 Pulse Oximetry 97 01/14/18 22:00 01/14/18 23:00 01/15/18 00:00 Temperature Pulse Rate 54 L 54 L 54 L Respiratory Rate 16 Blood Pressure 158/94 H Pulse Oximetry 98 01/15/18 01:00 01/15/18 02:00 01/15/18 03:00 Temperature Pulse Rate 52 L 52 L 60 Respiratory Rate Blood Pressure Pulse Oximetry 01/15/18 03:53 01/15/18 04:00 01/15/18 05:00 Temperature Pulse Rate 62 54 L 56 L Respiratory Rate 16 Blood Pressure 162/87 H Pulse Oximetry 93 L 01/15/18 06:00 Temperature Pulse Rate 60 Respiratory Rate Blood Pressure Pulse Oximetry Intake & Output 01/14/18 01/15/18 01/15/18 18:59 06:59 18:59 Intake Total 1070 / 1070 480 / 480 Output Total 1200 / 1200 600 / 600 Balance -130 / -130 -120 / -120 Weight 144 lb 9.972 oz Intake: IV 350 / 350 Azithromycin Inj 500 MG In NS 250 / 250 Inj 250 ML @ 250 mls/hr IV.SIG Q24H [facility] Rx#:[id number] Rocephin Inj 1,000 MG In NS Inj 100 / 100 100 ML @ 200 mls/hr IV.SIG Q24H [facility] Rx#:[id number] Oral 720 / 720 480 / 480 Output: Urine 1200 / 1200 600 / 600 Other: Date of Last Bowel Movement 01/14/18 01/15/18 # Bowel Movements 1 Narrative: GENERAL: Well-developed well-nourished. In no acute distress. NECK: No carotid bruits. No JVD. CARDIOVASCULAR: Regular rate and rhythm. No murmur appreciated. RESPIRATORY: Diffuse expiratory wheezing. MUSCULOSKELETAL: No clubbing or cyanosis. No edema. NEUROLOGICAL: Awake and alert. Normal speech. Results 01/14/18 05:35 01/14/18 05:35 CBC 01/13/18 01/14/18 Range/Units 07:22 05:35 WBC 17.0 H 11.7 H (4.0-11.0) th/mm3 RBC 4.82 4.64 (4.00-5.30) mil/mm3 Hgb 13.6 13.2 (11.6-15.3) gm/dL Hct 39.8 38.7 (35.0-46.0) % Plt Count 204 D 218 (150-450) th/mm3 Neut # (Auto) 15.3 H 10.1 H (1.8-7.7) th/mm3 Lymph # (Auto) 0.8 L 0.7 L (1.0-4.8) th/mm3 [place] # (Auto) 1.0 H 0.8 (0.0-0.9) th/mm3 Eos # (Auto) 0.0 0.0 (0.0-0.4) th/mm3 Baso # (Auto) 0.0 0.0 (0.0-0.2) th/mm3 Comprehensive Metabolic Panel 01/13/18 01/14/18 Range/Units 07:22 05:35 Sodium 141 142 (136-145) meq/L Potassium 3.6 3.7 (3.5-5.1) meq/L Chloride 102 103 (98-107) meq/L Carbon Dioxide 27.3 30.2 (21.0-32.0) meq/L BUN 25 H 26 H (7-18) mg/dL Creatinine 0.91 0.82 (0.50-1.00) mg/dL Calcium 9.0 8.9 (8.5-10.1) mg/dL Intake and Output 01/14/18 01/15/18 01/15/18 22:59 06:59 14:59 Intake Total 1070 / 1070 480 / 480 Output Total 1200 / 1200 600 / 600 Balance -130 / -130 -120 / -120 Intake: IV 350 / 350 Azithromycin Inj 500 MG In NS 250 / 250 Inj 250 ML @ 250 mls/hr IV.SIG Q24H [facility] Rx#:[id number] Rocephin Inj 1,000 MG In NS Inj 100 / 100 100 ML @ 200 mls/hr IV.SIG Q24H [facility] Rx#:[id number] Oral 720 / 720 480 / 480 Output: Urine 1200 / 1200 600 / 600 Other: Date of Last Bowel Movement 01/12/18 01/15/18 # Bowel Movements 1 Weight 144 lb 9.972 oz - Imaging and Cardiology Imaging: Impressions Myocardial Perfusion Scan Nuc Med 01/13/18 00:00 CONCLUSION: 1. Unremarkable myocardial perfusion examination. Chest X-Ray 01/14/18 09:25 CONCLUSION: No acute intrathoracic disease. Stable examination compared to the prior study. Assessment and Plan - Assessment (1) Atrial fibrillation with rapid ventricular response Code(s): I48.91 - Unspecified atrial fibrillation Status: Acute - Plan 67 yo WF with no prior cardiac history, COPD and tobacco abuse presented with progressive dyspnea x 1 week. She reports feeling SOB chronically but in the past several days this has progressed to dyspnea at rest. She admits to feeling palpitations intermittently for years lately more frequent. She is a daily smoker. Denies chest pain, edema or syncope. Reported significant family history with her sister having an CO age 39 and mother passing away from a CO in her 50's. EKG upon arrival in ED showed afib RVR HR 140-150bpm. chest films indicate possible pneumonia. Troponin x 3 negative. CTA negative for P.E. Currently tachypneic at rest, no chest pain A fib: Presented in RVR, currently in sinus rhythm. continue Metoprolol 25 mg twice daily especially with short NSVT. change short acting diltiazem to long-acting form CHADS-Vasc score = 3 (age, gender, HTN); Eliquis 5 mg BID started. 01/12/18 Echo showed LVEF 55%, no significant valvular disease. 01/13/18 nuclear stress showed no ischemia. COPD: With acute exacerbation. Management per primary team. Discharge planning - Attending Attestation agree with above rate control BB and CCB anticoag negative ischemic MORATAYA will sign off call with questions FU with dr. steward
[2018-01-15] MEDS: Lisinopril 20 MG Tablet PO SCH (08:41)
[2018-01-15] MEDS: clonazePAM 0.5 MG Tablet PO SCH ×2 (08:41→21:09)
[2018-01-15] MEDS: Metoprolol Tartrate 50 MG Tablet PO SCH ×2 (08:42→21:08)
--- NOTE | 2018-01-15 10:12 | P.PNIM ---
Subjective Interval history: The patient had questions about oxygen. She said that she will stop smoking cigarettes. She endorses diarrhea. She complains of anxiety. Discussed with nursing Physical Exam Vital signs: Vital Signs 01/14/18 11:00 01/14/18 12:00 01/14/18 13:00 Temperature 98 F Pulse Rate 71 64 62 Respiratory Rate 18 Blood Pressure 130/70 Pulse Oximetry 98 01/14/18 14:00 01/14/18 15:00 01/14/18 16:00 Temperature 97.7 F Pulse Rate 54 L 71 64 Respiratory Rate 18 Blood Pressure 136/81 Pulse Oximetry 100 01/14/18 17:00 01/14/18 19:00 01/14/18 20:00 Temperature 98 F Pulse Rate 64 59 L 72 Respiratory Rate 18 Blood Pressure 137/74 Pulse Oximetry 97 01/14/18 21:00 01/14/18 22:00 01/14/18 23:00 Temperature Pulse Rate 64 54 L 54 L Respiratory Rate Blood Pressure Pulse Oximetry 01/15/18 00:00 01/15/18 01:00 01/15/18 02:00 Temperature Pulse Rate 54 L 52 L 52 L Respiratory Rate 16 Blood Pressure 158/94 H Pulse Oximetry 98 01/15/18 03:00 01/15/18 03:53 01/15/18 04:00 Temperature Pulse Rate 60 62 54 L Respiratory Rate 16 Blood Pressure 162/87 H Pulse Oximetry 93 L 01/15/18 05:00 01/15/18 06:00 01/15/18 07:00 Temperature Pulse Rate 56 L 60 57 L Respiratory Rate Blood Pressure Pulse Oximetry 01/15/18 08:00 01/15/18 09:00 Temperature 97.6 F Pulse Rate 60 75 Respiratory Rate 20 Blood Pressure 155/84 H Pulse Oximetry 92 L Intake & Output 01/14/18 01/15/18 01/15/18 18:59 06:59 18:59 Intake Total 1070 / 1070 480 / 480 Output Total 1200 / 1200 600 / 600 Balance -130 / -130 -120 / -120 Weight 65.6 kg Intake: IV 350 / 350 Azithromycin Inj 500 MG In NS 250 / 250 Inj 250 ML @ 250 mls/hr IV.SIG Q24H [facility] Rx#:[id number] Rocephin Inj 1,000 MG In NS Inj 100 / 100 100 ML @ 200 mls/hr IV.SIG Q24H [facility] Rx#:[id number] Oral 720 / 720 480 / 480 Output: Urine 1200 / 1200 600 / 600 Other: Date of Last Bowel Movement 01/14/18 01/15/18 # Bowel Movements 1 Narrative: GENERAL: Well-developed well-nourished. In no acute distress. NECK: No carotid bruits. No JVD. CARDIOVASCULAR: Regular rate and rhythm. No murmur appreciated. RESPIRATORY: Poor air movement. Mild wheezing. MUSCULOSKELETAL: No clubbing or cyanosis. No edema. NEUROLOGICAL: Awake and alert. Normal speech. Results - Labs CBC & Chem 7: 01/14/18 05:35 01/14/18 05:35 Microbiology 01/11/18 13:30 Blood - Peripheral Aerobic Blood Culture - Preliminary No growth in 3 days 01/11/18 13:30 Blood - Peripheral Anaerobic Blood Culture - Preliminary No growth in 3 days 01/11/18 13:35 Blood - Peripheral Aerobic Blood Culture - Preliminary No growth in 3 days 01/11/18 13:35 Blood - Peripheral Anaerobic Blood Culture - Preliminary No growth in 3 days - Imaging Impressions Chest X-Ray 01/14/18 09:25 CONCLUSION: No acute intrathoracic disease. Stable examination compared to the prior study. Assessment and Plan - Assessment (1) Pneumonia Code(s): J18.9 - Pneumonia, unspecified organism Status: Acute (2) COPD exacerbation Code(s): J44.1 - Chronic obstructive pulmonary disease with (acute) exacerbation Status: Acute (3) Hypokalemia Code(s): E87.6 - Hypokalemia Status: Acute (4) Renal insufficiency Code(s): N28.9 - Disorder of kidney and ureter, unspecified Status: Acute (5) Atrial fibrillation with rapid ventricular response Code(s): I48.91 - Unspecified atrial fibrillation Status: Acute (6) Acute respiratory distress Code(s): R06.03 - Acute respiratory distress Status: Acute - Plan 67-year-old female with history of COPD, tobacco abuse, emphysema. Presented to emergency room with worsening shortness of breath, wheezing, subjective fever and chills. Was found to have A. fib with RVR, new onset COPD exacerbation, underlying emphysema Pneumonia, right middle, right lower lobe. Likely community-acquired. Repeat chest x-ray with improvement. -Continue with supplemental oxygen to keep sats greater than 90%. Currently on 6 L nasal cannula. Will need home oxygen upon discharge. -IV Solu-Medrol. -Duonebs standing and as needed -Continue with Zithromax and ceftriaxone IV. -Continue to follow cultures. -Incentive spirometry. -repeat ABG. -Encourage ambulation. A. fib with RVR, New onset, possibly associated with COPD, respiratory distress. Cardiology consult appreciated. Echo with normal EF. Stress test negative. -Continue with Cardizem and Lopressor per cardiology. -telemetry. -Patient agreeable with anticoagulation. Will start Eliquis. Case management consult to see if covered. Renal insufficiency/ Hypokalemia Improved. replete and monitor. Avoid nephrotoxic agents. -ADAT. Tobacco abuse Patient has been cutting down. Encouraged to abstain. Agoraphobia/ Anxiety Pt states she has not been out of the house in 5 years. She has severe anxiety. -Lorazepam as needed. -psych consult appreciated. Continue Paxil and Klonopin. Ativan as needed. PPx: Eliquis Discharge Planning: Hopefully d/c home with oxygen in AM (1) Pneumonia Qualifiers: Pneumonia type: due to unspecified organism Laterality: right Lung location : lower lobe of lung Qualified Code(s): J18.1 - Lobar pneumonia, unspecified organism
[2018-01-15 10:28] LABS: ABG PCO2 49 mmHg (38-42); ABG PO2 60 mmHG (61-120)
[2018-01-15] MEDS: dilTIAZem CD 120 MG Capsule PO SCH (10:35)
[2018-01-15] MEDS: Azithromycin Inj 500 MG in Sodium Chlor 0.9% Inj 250 ML IV.SIG SCH (16:14)
--- NOTE | 2018-01-15 20:18 | MB ---
cc: Anatoly Leal MD DATE: 01/15/2018 REQUESTING PHYSICIAN: Dr. Nuñez. REASON FOR CONSULTATION: COPD and shortness of breath. HISTORY OF PRESENT ILLNESS: Ms. Guthrie is a 67-year-old female with longstanding history of COPD and nicotine use. The patient has not been seeing any physician for at least 5 years and has not been taking any medication. She was getting more shortness of breath and is getting weaker and weaker. Her son decided to bring him to the hospital. She denies any chest pain. No fluttering sensation in the chest. No dizziness. The patient was found to be in atrial fibrillation with rapid ventricular rate. She was evaluated in the hospital. She had a CTA of the chest done, does not show any pulmonary embolism, shows mild patchy infiltrate. Creatinine 0.82. PAST MEDICAL HISTORY: Significant for history of COPD. MEDICATIONS: She is currently takin. Albuterol and Atrovent nebulizer treatment. 2. Eliquis 5 mg twice a day. 3. Zithromax 500 mg a day. 4. Rocephin 1 g a day. 5. Klonopin 0.5 mg every 12 hours. 6. Diltiazem 120 mg. 7. Lisinopril 20 mg a day. 8. Ativan 0.5 mg. 9. Solu-Medrol 40 mg q.12 hours. 10. Metoprolol 25 mg twice a day. 11. Zofran p.r.n. 12. Paxil 10 mg a day. ALLERGIES: NO KNOWN DRUG ALLERGIES. SOCIAL HISTORY: She has a long history of smoking and continues to smoke. Denies any alcohol use. FAMILY HISTORY: Significant for history of coronary artery disease. She is a who lives alone. Her son recently is with her to help her. REVIEW OF SYSTEMS: She walks only half a block or so, gets short of breath. Weight is stable. No DVT or pulmonary embolism. No seizure, stroke or epilepsy. PHYSICAL EXAMINATION: GENERAL: Elderly female, mildly short of breath. VITAL SIGNS: Blood pressure 146/77, heart rate 65, respirations 18, temperature 97.9. HEENT: Pupils are equal and reactive to light. Oral mucosa and nasal mucosa normal. NECK: Supple. JVP not raised. CHEST: She has expiratory rhonchi. HEART: S1, S2 normal. ABDOMEN: Soft, nondistended. Bowel sounds present. EXTREMITIES: No edema. IMPRESSION: 1. Chronic obstructive pulmonary disease exacerbation. 2. Lung infiltrate. 3. Nicotine use. 4. Hypoxia. No pulmonary embolism. 5. Atrial fibrillation with rapid ventricular rate. PLAN: 1. Supplemental oxygen. Continue IV Solu-Medrol. Continue antibiotic. She will need home oxygen therapy. Also, check a pulmonary function study. Advised her strongly to quit smoking. Further treatment pending the course in the hospital. Thank you Dr. Nuñez for this consult. MD MIN Pham/nikole/elton , 06:30 PM , 06:39 PM
[2018-01-16 07:13] LABS: Calcium 8.3 mg/dL (8.5-10.1); Carbon Dioxide 32.3 meq/L (21.0-32.0); Potassium 4.4 meq/L (3.5-5.1)
[2018-01-16] MEDS: dilTIAZem CD 120 MG Capsule PO SCH (08:29)
[2018-01-16] MEDS: Lisinopril 20 MG Tablet PO SCH (08:30)
[2018-01-16] MEDS: Metoprolol Tartrate 50 MG Tablet PO SCH ×2 (08:30→20:23)
[2018-01-16] MEDS: clonazePAM 0.5 MG Tablet PO SCH ×2 (08:30→20:23)
[2018-01-16] MEDS: MethylPREDNISolone Sod Succinate Inj 40 MG/ML Vial IV.PUSH SCH ×2 (08:31→20:23)
--- NOTE | 2018-01-16 14:19 | P.PNIM ---
Subjective Interval history: The patient was feeling a little bit better. She said she spoke with the lung doctor. She said her anxiety is a little bit better today. She said she was talking to somebody earlier about Medicaid application. No acute concerns at this time. Physical Exam Vital signs: Vital Signs 01/15/18 15:00 01/15/18 15:30 01/15/18 16:00 Temperature 97.9 F Pulse Rate 69 65 67 Respiratory Rate 18 Blood Pressure 146/77 H Pulse Oximetry 100 01/15/18 17:00 01/15/18 18:00 01/15/18 19:00 Temperature 98.2 F Pulse Rate 74 71 73 Respiratory Rate 20 Blood Pressure 132/87 Pulse Oximetry 96 01/15/18 19:08 01/15/18 19:09 01/15/18 20:00 Temperature Pulse Rate 70 76 Respiratory Rate 22 Blood Pressure Pulse Oximetry 98 96 01/15/18 21:00 01/15/18 22:00 01/15/18 23:00 Temperature 98.3 F Pulse Rate 74 66 68 Respiratory Rate 20 Blood Pressure 146/83 H Pulse Oximetry 98 01/16/18 00:00 01/16/18 01:00 01/16/18 02:00 Temperature Pulse Rate 65 62 62 Respiratory Rate 20 Blood Pressure Pulse Oximetry 01/16/18 03:00 01/16/18 03:17 01/16/18 03:31 Temperature 98.0 F Pulse Rate 71 Respiratory Rate 16 Blood Pressure 173/96 H 155/96 H 179/90 H Pulse Oximetry 92 L 01/16/18 03:45 01/16/18 04:00 01/16/18 04:06 Temperature Pulse Rate 59 L Respiratory Rate Blood Pressure 163/86 H 159/86 H Pulse Oximetry 01/16/18 05:00 01/16/18 06:00 01/16/18 07:00 Temperature 97.5 F L Pulse Rate 56 L 50 L 59 L Respiratory Rate 19 Blood Pressure 141/69 H Pulse Oximetry 91 L 01/16/18 07:43 01/16/18 08:00 01/16/18 09:00 Temperature Pulse Rate 51 L 52 L 72 Respiratory Rate 16 Blood Pressure Pulse Oximetry 91 L 92 L 01/16/18 10:00 01/16/18 11:00 01/16/18 12:00 Temperature 97.9 F Pulse Rate 58 L 64 58 L Respiratory Rate 18 Blood Pressure 157/69 H Pulse Oximetry 92 L 01/16/18 13:00 01/16/18 13:19 Temperature Pulse Rate 66 59 L Respiratory Rate 16 Blood Pressure Pulse Oximetry Intake & Output 01/15/18 01/16/18 01/16/18 18:59 06:59 18:59 Intake Total 1100 / 1100 480 / 480 Output Total 400 / 400 Balance 1100 / 1100 80 / 80 Weight 65.3 kg Intake: IV 350 / 350 Azithromycin Inj 500 MG In NS 250 / 250 Inj 250 ML @ 250 mls/hr IV.SIG Q24H LV Rx#:[id number] Rocephin Inj 1,000 MG In NS Inj 100 / 100 100 ML @ 200 mls/hr IV.SIG Q24H LV Rx#:[id number] Oral 750 / 750 480 / 480 Output: Urine 400 / 400 Other: # Voids 3 Date of Last Bowel Movement 01/15/18 01/16/18 Narrative: GENERAL: Well-developed well-nourished. In no acute distress. NECK: No carotid bruits. No JVD. CARDIOVASCULAR: Regular rate and rhythm. No murmur appreciated. RESPIRATORY: Poor air movement. MUSCULOSKELETAL: No clubbing or cyanosis. No edema. NEUROLOGICAL: Awake and alert. Normal speech. PSYCH: Mood and affect appropriate. Results - Labs CBC & Chem 7: 01/14/18 05:35 01/16/18 05:49 Laboratory Results - last 24 hr 01/16/18 05:49 Sodium 141 Potassium 4.4 Chloride 102 Carbon Dioxide 32.3 H Anion Gap 7 BUN 31 H Creatinine 0.96 Estimated GFR 58 L Random Glucose 125 H Calcium 8.3 L Microbiology 01/11/18 13:30 Blood - Peripheral Aerobic Blood Culture - Final No growth in 5 days 01/11/18 13:30 Blood - Peripheral Anaerobic Blood Culture - Final No growth in 5 days 01/11/18 13:35 Blood - Peripheral Aerobic Blood Culture - Final No growth in 5 days 01/11/18 13:35 Blood - Peripheral Anaerobic Blood Culture - Final No growth in 5 days Assessment and Plan - Assessment (1) Pneumonia Code(s): J18.9 - Pneumonia, unspecified organism Status: Acute (2) COPD exacerbation Code(s): J44.1 - Chronic obstructive pulmonary disease with (acute) exacerbation Status: Acute (3) Hypokalemia Code(s): E87.6 - Hypokalemia Status: Acute (4) Renal insufficiency Code(s): N28.9 - Disorder of kidney and ureter, unspecified Status: Acute (5) Atrial fibrillation with rapid ventricular response Code(s): I48.91 - Unspecified atrial fibrillation Status: Acute (6) Acute respiratory distress Code(s): R06.03 - Acute respiratory distress Status: Acute - Plan 67-year-old female with history of COPD, tobacco abuse, emphysema. Presented to emergency room with worsening shortness of breath, wheezing, subjective fever and chills. Was found to have A. fib with RVR, new onset COPD exacerbation, underlying emphysema Pneumonia, right middle, right lower lobe. Likely community-acquired. Repeat chest x-ray with improvement. Pulmonology consult appreciated. -Continue with supplemental oxygen to keep sats greater than 90%. Currently on 6 L nasal cannula. Will need home oxygen upon discharge. -IV Solu-Medrol BID. -Duonebs standing and as needed -Continue with Zithromax and ceftriaxone IV to complete a course. -Continue to follow cultures. NGTD. -Incentive spirometry. -Encourage ambulation. PT recommending rehab. -pulmonology following. A. fib with RVR, New onset, possibly associated with COPD, respiratory distress. Cardiology consult appreciated. Echo with normal EF. Stress test negative. -Continue with Cardizem and Lopressor per cardiology. -telemetry. -Patient agreeable with anticoagulation. We started Eliquis. Renal insufficiency/ Hypokalemia Improved. replete and monitor. Avoid nephrotoxic agents. -ADAT. Tobacco abuse Patient has been cutting down. Encouraged to abstain. Agoraphobia/ Anxiety Pt states she has not been out of the house in 5 years. She has severe anxiety. -Lorazepam as needed. -psych consult appreciated. Continue Paxil and Klonopin. Ativan as needed. PPx: Eliquis Discharge Planning: D/c to SNF vs [facility] with oxygen once respiratory status improves. (1) Pneumonia Qualifiers: Pneumonia type: due to unspecified organism Laterality: right Lung location : lower lobe of lung Qualified Code(s): J18.1 - Lobar pneumonia, unspecified organism
[2018-01-16] MEDS: Azithromycin Inj 500 MG in Sodium Chlor 0.9% Inj 250 ML IV.SIG SCH (17:10)
--- NOTE | 2018-01-16 18:18 | P.PNPL ---
Subjective Interval history: 67 YOWF with COPD exac, AF Breathing better Still weak, sob with any activity Sob at BS Physical Exam Vital signs: Vital Signs 01/15/18 19:00 01/15/18 19:08 01/15/18 19:09 Temperature 98.2 F Pulse Rate 73 70 Respiratory Rate 20 22 Blood Pressure 132/87 Pulse Oximetry 96 98 01/15/18 20:00 01/15/18 21:00 01/15/18 22:00 Temperature Pulse Rate 76 74 66 Respiratory Rate Blood Pressure Pulse Oximetry 96 01/15/18 23:00 01/16/18 00:00 01/16/18 01:00 Temperature 98.3 F Pulse Rate 68 65 62 Respiratory Rate 20 20 Blood Pressure 146/83 H Pulse Oximetry 98 01/16/18 02:00 01/16/18 03:00 01/16/18 03:17 Temperature 98.0 F Pulse Rate 62 71 Respiratory Rate 16 Blood Pressure 173/96 H 155/96 H Pulse Oximetry 92 L 01/16/18 03:31 01/16/18 03:45 01/16/18 04:00 Temperature Pulse Rate 59 L Respiratory Rate Blood Pressure 179/90 H 163/86 H Pulse Oximetry 01/16/18 04:06 01/16/18 05:00 01/16/18 06:00 Temperature Pulse Rate 56 L 50 L Respiratory Rate Blood Pressure 159/86 H Pulse Oximetry 01/16/18 07:00 01/16/18 07:43 01/16/18 08:00 Temperature 97.5 F L Pulse Rate 59 L 51 L 52 L Respiratory Rate 19 16 Blood Pressure 141/69 H Pulse Oximetry 91 L 91 L 92 L 01/16/18 09:00 01/16/18 10:00 01/16/18 11:00 Temperature 97.9 F Pulse Rate 72 58 L 64 Respiratory Rate 18 Blood Pressure 157/69 H Pulse Oximetry 92 L 01/16/18 12:00 01/16/18 13:00 01/16/18 13:19 Temperature Pulse Rate 58 L 66 59 L Respiratory Rate 16 Blood Pressure Pulse Oximetry 01/16/18 14:00 01/16/18 15:00 01/16/18 16:00 Temperature Pulse Rate 52 L 60 60 Respiratory Rate Blood Pressure Pulse Oximetry 01/16/18 17:00 01/16/18 17:06 Temperature 98 F Pulse Rate 60 57 L Respiratory Rate 18 Blood Pressure 128/81 Pulse Oximetry 93 L Intake & Output 01/15/18 01/16/18 01/16/18 18:59 06:59 18:59 Intake Total 1100 / 1100 480 / 480 480 / 480 Output Total 400 / 400 600 / 600 Balance 1100 / 1100 80 / 80 -120 / -120 Weight 65.3 kg Intake: IV 350 / 350 Azithromycin Inj 500 MG In NS 250 / 250 Inj 250 ML @ 250 mls/hr IV.SIG Q24H LV Rx#:[id number] Rocephin Inj 1,000 MG In NS Inj 100 / 100 100 ML @ 200 mls/hr IV.SIG Q24H LV Rx#:[id number] Oral 750 / 750 480 / 480 480 / 480 Output: Urine 400 / 400 600 / 600 Other: # Voids 3 Date of Last Bowel Movement 01/15/18 01/16/18 # Bowel Movements 1 GENERAL: Elderly WF, mild sob SKIN: Warm and dry. HEAD: Normocephalic. EYES: No scleral icterus. No injection or drainage. NECK: Supple, trachea midline. No JVD or lymphadenopathy. CARDIOVASCULAR: Regular rate and rhythm without murmurs, gallops, or rubs. RESPIRATORY: Breath sounds equal bilaterally. No accessory muscle use. Decreased chest excursion. GASTROINTESTINAL: Abdomen soft, non-tender, nondistended. MUSCULOSKELETAL: No cyanosis, or edema. BACK: Nontender without obvious deformity. No CVA tenderness. Assessment and Plan - Plan IMPRESSION: 1. Chronic obstructive pulmonary disease exacerbation. 2. Lung infiltrate. 3. Nicotine use. 4. Hypoxia. No pulmonary embolism. 5. Atrial fibrillation with rapid ventricular rate. PLAN: IV solumedrol Cont Abx Aerosol nebs Check PFt Supplement 02 Will need home 02 Smoking cessation.
[2018-01-17] MEDS: Lisinopril 20 MG Tablet PO SCH (08:57)
[2018-01-17] MEDS: dilTIAZem CD 120 MG Capsule PO SCH (08:58)
[2018-01-17] MEDS: clonazePAM 0.5 MG Tablet PO SCH ×2 (09:00→20:19)
[2018-01-17] MEDS: Metoprolol Tartrate 50 MG Tablet PO SCH ×2 (09:01→20:17)
[2018-01-17] MEDS: MethylPREDNISolone Sod Succinate Inj 40 MG/ML Vial IV.PUSH SCH (09:02)
[2018-01-17] MEDS ORDERED: Influenza (Quadrivalent) Vaccine 0.5 ML Syringe IM ONE (14:30)
--- NOTE | 2018-01-17 15:06 | P.PNIM ---
Subjective Interval history: Patient reports her breathing status is slightly better today. No chest pain. Requesting scheduled breathing treatments. Physical Exam Vital signs: Vital Signs 01/16/18 16:00 01/16/18 17:00 01/16/18 17:06 Temperature 98 F Pulse Rate 60 60 57 L Respiratory Rate 18 Blood Pressure 128/81 Pulse Oximetry 93 L 01/16/18 18:00 01/16/18 19:00 01/16/18 19:55 Temperature 98.1 F Pulse Rate 64 83 80 Respiratory Rate 20 18 Blood Pressure 155/68 H Pulse Oximetry 95 95 01/16/18 20:00 01/16/18 21:00 01/16/18 22:00 Temperature Pulse Rate 66 62 60 Respiratory Rate Blood Pressure Pulse Oximetry 95 01/16/18 23:00 01/16/18 23:19 01/16/18 23:30 Temperature 97.5 F L Pulse Rate 68 Respiratory Rate 20 Blood Pressure 188/98 H 172/83 H 158/82 H Pulse Oximetry 91 L 01/16/18 23:46 01/17/18 00:00 01/17/18 01:00 Temperature Pulse Rate 62 60 Respiratory Rate Blood Pressure 155/82 H Pulse Oximetry 01/17/18 02:00 01/17/18 03:00 01/17/18 04:00 Temperature 98.0 F Pulse Rate 60 62 60 Respiratory Rate 20 20 Blood Pressure 145/75 H Pulse Oximetry 93 L 01/17/18 05:00 01/17/18 06:00 01/17/18 07:00 Temperature 98.7 F Pulse Rate 55 L 53 L 62 Respiratory Rate 18 Blood Pressure 152/82 H Pulse Oximetry 96 01/17/18 08:00 01/17/18 09:00 01/17/18 10:00 Temperature Pulse Rate 55 L 60 50 L Respiratory Rate Blood Pressure Pulse Oximetry 96 01/17/18 11:00 01/17/18 12:00 01/17/18 12:33 Temperature 98.1 F Pulse Rate 64 56 L 69 Respiratory Rate 18 20 Blood Pressure 175/79 H Pulse Oximetry 95 92 L 01/17/18 13:00 01/17/18 14:00 Temperature Pulse Rate 64 62 Respiratory Rate Blood Pressure Pulse Oximetry Intake & Output 01/16/18 01/17/18 01/17/18 18:59 06:59 18:59 Intake Total 480 / 480 830 / 830 Output Total 600 / 600 300 / 300 Balance -120 / -120 530 / 530 Weight 66.3 kg Intake: IV 350 / 350 Azithromycin Inj 500 MG In NS 250 / 250 Inj 250 ML @ 250 mls/hr IV.SIG Q24H LV Rx#:[id number] Rocephin Inj 1,000 MG In NS Inj 100 / 100 100 ML @ 200 mls/hr IV.SIG Q24H LV Rx#:[id number] Oral 480 / 480 480 / 480 Output: Urine 600 / 600 300 / 300 Other: Date of Last Bowel Movement 01/16/18 01/16/18 # Bowel Movements 1 Narrative: GENERAL: Well-developed well-nourished. In no acute distress. NECK: No carotid bruits. No JVD. CARDIOVASCULAR: Regular rate and rhythm. No murmur appreciated. RESPIRATORY: Poor air movement. Markedly diminished breath sounds at the bases. No wheezing or rhonchi. MUSCULOSKELETAL: No clubbing or cyanosis. No edema. NEUROLOGICAL: Awake and alert. Normal speech. PSYCH: Mood and affect appropriate. Results - Labs CBC & Chem 7: 01/14/18 05:35 01/16/18 05:49 Assessment and Plan - Assessment (1) Pneumonia Code(s): J18.9 - Pneumonia, unspecified organism Status: Acute (2) COPD exacerbation Code(s): J44.1 - Chronic obstructive pulmonary disease with (acute) exacerbation Status: Acute (3) Hypokalemia Code(s): E87.6 - Hypokalemia Status: Acute (4) Renal insufficiency Code(s): N28.9 - Disorder of kidney and ureter, unspecified Status: Acute (5) Atrial fibrillation with rapid ventricular response Code(s): I48.91 - Unspecified atrial fibrillation Status: Acute (6) Acute respiratory distress Code(s): R06.03 - Acute respiratory distress Status: Acute - Plan 67-year-old female with history of COPD, tobacco abuse, emphysema. Presented to emergency room with worsening shortness of breath, wheezing, subjective fever and chills. Was found to have A. fib with RVR, new onset COPD exacerbation, underlying emphysema Pneumonia, right middle, right lower lobe. Likely community-acquired. Repeat chest x-ray with improvement. Pulmonology consult appreciated. -Continue with supplemental oxygen to keep sats greater than 90%. Currently on 6 L nasal cannula. Will need home oxygen upon discharge. -Transition to oral prednisone. -Duonebs standing and as needed -Patient received 5 days of Rocephin and Zithromax. Discontinue Zithromax. Transition to oral cefuroxime for a couple more days. -Cultures negative. -Incentive spirometry. -Encourage ambulation. PT following. -pulmonology following. A. fib with RVR, New onset, possibly associated with COPD, respiratory distress. Cardiology consult appreciated. Echo with normal EF. Stress test negative. -Continue with Cardizem and Lopressor per cardiology. -telemetry. -Patient agreeable with anticoagulation. She was started on Eliquis. Renal insufficiency/ Hypokalemia Improved. replete and monitor. Avoid nephrotoxic agents. -ADAT. Tobacco abuse Patient has been cutting down. Encouraged to abstain. Agoraphobia/ Anxiety Pt states she has not been out of the house in 5 years. She has severe anxiety. -Lorazepam as needed. -psych consult appreciated. Continue Paxil and Klonopin. Ativan as needed. PPx: Eliquis Discharge Planning: Anticipate discharge tomorrow morning if she continues to remain stable. Home oxygen ordered. Home health versus SNF. PT to evaluate again. (1) Pneumonia Qualifiers: Pneumonia type: due to unspecified organism Laterality: right Lung location : lower lobe of lung Qualified Code(s): J18.1 - Lobar pneumonia, unspecified organism
--- NOTE | 2018-01-17 19:40 | P.PNPL ---
Subjective Interval history: 67 YOWF with COPD exac, AF Breathing better Still weak, sob with any activity PFT Severe COPD Physical Exam Vital signs: Vital Signs 01/16/18 19:55 01/16/18 20:00 01/16/18 21:00 Temperature Pulse Rate 80 66 62 Respiratory Rate 18 Blood Pressure Pulse Oximetry 95 95 01/16/18 22:00 01/16/18 23:00 01/16/18 23:19 Temperature 97.5 F L Pulse Rate 60 68 Respiratory Rate 20 Blood Pressure 188/98 H 172/83 H Pulse Oximetry 91 L 01/16/18 23:30 01/16/18 23:46 01/17/18 00:00 Temperature Pulse Rate 62 Respiratory Rate Blood Pressure 158/82 H 155/82 H Pulse Oximetry 01/17/18 01:00 01/17/18 02:00 01/17/18 03:00 Temperature 98.0 F Pulse Rate 60 60 62 Respiratory Rate 20 Blood Pressure 145/75 H Pulse Oximetry 93 L 01/17/18 04:00 01/17/18 05:00 01/17/18 06:00 Temperature Pulse Rate 60 55 L 53 L Respiratory Rate 20 Blood Pressure Pulse Oximetry 01/17/18 07:00 01/17/18 08:00 01/17/18 09:00 Temperature 98.7 F Pulse Rate 62 55 L 60 Respiratory Rate 18 Blood Pressure 152/82 H Pulse Oximetry 96 96 01/17/18 10:00 01/17/18 11:00 01/17/18 12:00 Temperature 98.1 F Pulse Rate 50 L 64 56 L Respiratory Rate 18 Blood Pressure 175/79 H Pulse Oximetry 95 01/17/18 12:33 01/17/18 13:00 01/17/18 14:00 Temperature Pulse Rate 69 64 62 Respiratory Rate 20 Blood Pressure Pulse Oximetry 92 L 01/17/18 15:00 01/17/18 15:38 01/17/18 15:39 Temperature Pulse Rate 58 L 64 Respiratory Rate 18 20 Blood Pressure 173/93 H Pulse Oximetry 91 L 93 L 01/17/18 16:00 01/17/18 17:00 01/17/18 18:00 Temperature Pulse Rate 58 L 66 60 Respiratory Rate Blood Pressure Pulse Oximetry Intake & Output 01/17/18 01/17/18 01/18/18 06:59 18:59 06:59 Intake Total 830 / 830 480 / 480 Output Total 300 / 300 Balance 530 / 530 480 / 480 Weight 66.3 kg Intake: IV 350 / 350 Azithromycin Inj 500 MG In NS 250 / 250 Inj 250 ML @ 250 mls/hr IV.SIG Q24H LV Rx#:[id number] Rocephin Inj 1,000 MG In NS Inj 100 / 100 100 ML @ 200 mls/hr IV.SIG Q24H LV Rx#:[id number] Oral 480 / 480 480 / 480 Output: Urine 300 / 300 Other: # Voids 4 Date of Last Bowel Movement 01/16/18 GENERAL: Elderly WF, NAD SKIN: Warm and dry. HEAD: Normocephalic. EYES: No scleral icterus. No injection or drainage. NECK: Supple, trachea midline. No JVD or lymphadenopathy. CARDIOVASCULAR: Regular rate and rhythm without murmurs, gallops, or rubs. RESPIRATORY: Breath sounds equal bilaterally. No accessory muscle use. Decreased Chest excursion GASTROINTESTINAL: Abdomen soft, non-tender, nondistended. MUSCULOSKELETAL: No cyanosis, or edema. BACK: Nontender without obvious deformity. No CVA tenderness. Assessment and Plan - Plan IMPRESSION: 1. Chronic obstructive pulmonary disease exacerbation. 2. Lung infiltrate. 3. Nicotine use. 4. Hypoxia. No pulmonary embolism. 5. Atrial fibrillation with rapid ventricular rate. PLAN: DC solumedrol PO Steroids Cont Abx Aerosol nebs Supplement 02 Will need home 02 Smoking cessation.
[2018-01-18] MEDS: clonazePAM 0.5 MG Tablet PO SCH (09:25)
[2018-01-18] MEDS: dilTIAZem CD 120 MG Capsule PO SCH (09:25)
[2018-01-18] MEDS: predniSONE 10 MG Tablet PO SCH ×2 (09:26→12:46)
[2018-01-18] MEDS: Lisinopril 20 MG Tablet PO SCH (09:26)
--- NOTE | 2018-01-18 09:28 | P.DCO ---
- Diagnosis (1) Atrial fibrillation with rapid ventricular response Status: Acute (2) Acute respiratory distress Status: Acute (3) COPD exacerbation Status: Acute (4) Anxiety disorder, unspecified Status: Acute (5) COPD (chronic obstructive pulmonary disease) Status: Acute - Physical Therapy Order: Evaluate and treat, Improve ambulation, Strength and gait training - Home Health Nursing Order: Medical education, Signs/symptoms of disease process, Oxygen administration education, Medication education-adverse effect, Nursing assessment with vital signs - Case Management Consult Yes - Certification I have seen patient Jessica Guthrie on 01/18/18. My clinical findings support the need for the requested home health care services because: Limited mobility due to disease progression, Patient has SOB, Deconditioned with increased weakness I certify that my clinical findings support that this patient is homebound because: Hx COPD - exertion dyspnea/weakness, Poor cardiac reserve
[2018-01-18] MEDS: Metoprolol Tartrate 50 MG Tablet PO SCH (09:29)
--- NOTE | 2018-01-18 10:55 | P.DS ---
Date of admission: 01/11/18 17:06 Primary care physician: No Primary Care Physician Brief History from admission: HPI from the admitting physician: Mrs. Guthrie is a 67-year-old white female with significant past medical history of tobacco abuse, COPD, emphysema. Patient presented to the emergency room for complaint of shortness of breath. Patient indicates she is been short of breath for a week, has been worsening over the last 3 days to the point that she could anything walk down the stairs. She is unable to lay flat, she has had cough with very little sputum, increased wheezing, has had subjective fever and chills. Does not use oxygen at home. She denies any chest pain, complains of some fluttering on her chest. She does not take any medications, indicates she has not seen a primary care physician in the last 5 years. Patient has been told she has COPD and emphysema but has never been treated and is not on any nebulizer. Patient was evaluated in the emergency room, she was noted in A. fib with RVR. Patient denies any history of dysrhythmia, no history of coronary artery disease. Laboratory workup was done, CBC remarkable for platelet of 132, hemoglobin 16. BMP remarkable for creatinine 1.18, potassium 3.2. AST 45. BNP was 87. CTA negative for PE, mild patchy infiltrate in the right middle lobe, right lower lobe of concern for early pneumonia, underlying emphysema. Chest x-ray with bibasilar atelectasis, degenerative changes and a scoliosis of the thoracolumbar spine. Heart rate was noted in the 140s 150s, she received diltiazem bolus and is currently on a drip at 15 mg/h. She has received multiple breathing treatments in addition to Solu-Medrol 125 mg x1. She was given azithromycin and ceftriaxone. At this time, she is resting comfortably. Indicates that she has cut down on smoking and occasionally smokes 1-2 with her coffee. Patient is admitted for further evaluation and treatment. Patient update on day of discharge: Patient reports she is feeling better, breathing more comfortably. Initially refused to go to rehab but later agreed once she realized her physical limitations. DS: Diagnosis - Discharge Diagnosis (1) Atrial fibrillation with rapid ventricular response Status: Acute (2) Acute respiratory distress Status: Acute (3) COPD exacerbation Status: Acute (4) Anxiety disorder, unspecified Status: Acute (5) COPD (chronic obstructive pulmonary disease) Status: Acute (6) Pneumonia Status: Acute (7) Hypokalemia Status: Acute (8) Renal insufficiency Status: Acute DS: Medications - Discharge Medications Prescriptions: apixaban [Eliquis] 5 mg PO BID #60 tab cefuroxime axetil 500 mg PO Q12HR #10 tab clonazepam [Klonopin] 0.5 mg PO Q12HR #60 tab diltiazem HCl 120 mg PO DAILY #30 cap lisinopril 20 mg PO DAILY #30 tab paroxetine HCl 10 mg PO DAILY #30 tab prednisone 20 mg PO DIRECTED #11 tab DS: Summary Hospital Course: 67-year-old female with history of COPD, tobacco abuse, emphysema. Presented to emergency room with worsening shortness of breath, wheezing, subjective fever and chills. Was found to have A. fib with RVR, new onset. Evaluation and treatment course detailed below: COPD exacerbation, underlying emphysema Pneumonia, right middle, right lower lobe. Likely community-acquired. Repeat chest x-ray with improvement. Pulmonology consult appreciated. The patient was treated with steroids, antibiotics, supplemental oxygen. Her respiratory status improved. She does need to continue on oxygen and this can be weaned off outpatient. She is advised to follow-up outpatient with pulmonology. A. fib with RVR, New onset, possibly associated with COPD, respiratory distress. Cardiology consult appreciated. Echo with normal EF. Stress test negative. -Continue with Cardizem and Lopressor per cardiology. -Patient agreeable with anticoagulation. She was started on Eliquis. Renal insufficiency/ Hypokalemia Improved. Avoid nephrotoxic agents. Tobacco abuse Patient has been cutting down. Encouraged to abstain. Agoraphobia/ Anxiety Pt states she has not been out of the house in 5 years. She has severe anxiety. -Lorazepam as needed. -psych consult appreciated. Continue Paxil and Klonopin. - Time Spent with Patient Total time spent providing and/or coordinating discharge services: Greater than 30 minutes - Quality: VTE Deep Vein Thrombosis/Pulmonary Embolism Present on Admission: No Exam Vital signs: Vital Signs 01/17/18 11:00 01/17/18 12:00 01/17/18 12:33 Temperature 98.1 F Pulse Rate 64 56 L 69 Respiratory Rate 18 20 Blood Pressure 175/79 H Pulse Oximetry 95 92 L Pulse Oximetry [Exertion on Room Air] Pulse Oximetry [Resting with Oxygen] 01/17/18 13:00 01/17/18 14:00 01/17/18 15:00 Temperature Pulse Rate 64 62 58 L Respiratory Rate 18 Blood Pressure 173/93 H Pulse Oximetry 91 L Pulse Oximetry [Exertion on Room Air] Pulse Oximetry [Resting with Oxygen] 01/17/18 15:38 01/17/18 15:39 01/17/18 16:00 Temperature Pulse Rate 64 58 L Respiratory Rate 20 Blood Pressure Pulse Oximetry 93 L Pulse Oximetry [Exertion on Room Air] Pulse Oximetry [Resting with Oxygen] 01/17/18 17:00 01/17/18 18:00 01/17/18 19:00 Temperature 97.8 F Pulse Rate 66 60 66 Respiratory Rate 20 Blood Pressure 155/91 H Pulse Oximetry 95 Pulse Oximetry [Exertion on Room Air] Pulse Oximetry [Resting with Oxygen] 01/17/18 20:00 01/17/18 21:00 01/17/18 21:13 Temperature Pulse Rate 62 70 Respiratory Rate Blood Pressure Pulse Oximetry 95 Pulse Oximetry [Exertion on Room Air] 81 L Pulse Oximetry [Resting with Oxygen] 90 L 01/17/18 21:18 01/17/18 22:00 01/17/18 23:00 Temperature 98.1 F Pulse Rate 69 58 L 65 Respiratory Rate 22 20 Blood Pressure 159/69 H Pulse Oximetry 98 Pulse Oximetry [Exertion on Room Air] Pulse Oximetry [Resting with Oxygen] 01/18/18 00:00 01/18/18 01:00 01/18/18 02:00 Temperature Pulse Rate 58 L 86 62 Respiratory Rate Blood Pressure Pulse Oximetry Pulse Oximetry [Exertion on Room Air] Pulse Oximetry [Resting with Oxygen] 01/18/18 03:00 01/18/18 04:00 01/18/18 05:00 Temperature 98.1 F Pulse Rate 71 78 61 Respiratory Rate 20 20 Blood Pressure 166/86 H Pulse Oximetry 94 L Pulse Oximetry [Exertion on Room Air] Pulse Oximetry [Resting with Oxygen] 01/18/18 06:00 01/18/18 07:00 01/18/18 08:00 Temperature 97.6 F Pulse Rate 67 52 L 68 Respiratory Rate 22 Blood Pressure 160/98 H Pulse Oximetry 92 L Pulse Oximetry [Exertion on Room Air] Pulse Oximetry [Resting with Oxygen] 01/18/18 09:00 01/18/18 09:34 01/18/18 10:00 Temperature Pulse Rate 74 66 65 Respiratory Rate 15 Blood Pressure Pulse Oximetry 92 L Pulse Oximetry [Exertion on Room Air] Pulse Oximetry [Resting with Oxygen] Intake & Output 01/17/18 01/18/18 01/18/18 18:59 06:59 18:59 Intake Total 480 / 480 240 / 240 Balance 480 / 480 240 / 240 Weight 66.4 kg Intake: Oral 480 / 480 240 / 240 Other: # Voids 4 2 Date of Last Bowel Movement 01/17/18 Narrative: GENERAL: Well-developed well-nourished. In no acute distress. NECK: No carotid bruits. No JVD. CARDIOVASCULAR: Regular rate and rhythm. No murmur appreciated. RESPIRATORY: Poor air movement. Diminished breath sounds at the bases. No wheezing or rhonchi. MUSCULOSKELETAL: No clubbing or cyanosis. No edema. NEUROLOGICAL: Awake and alert. Normal speech. PSYCH: Mood and affect appropriate. Results Procedures completed during hospitalization: None - Impressions ITS Impressions Chest CTA 01/11/18 14:23 CONCLUSION: 1. No evidence of pulmonary embolism. 2. There is mild patchy infiltrate in the right middle lobe and right lower lobe of concern for early pneumonia. 3. Underlying emphysema. Myocardial Perfusion Scan Nuc Med 01/13/18 00:00 CONCLUSION: 1. Unremarkable myocardial perfusion examination. Chest X-Ray 01/14/18 09:25 CONCLUSION: No acute intrathoracic disease. Stable examination compared to the prior study. Discharge Plan - Discharge Disposition Patient Disposition: Discharge to SNF - Discharge Condition Condition: Good - Discharge Order Discharge Orders: Discharge Order (Routine); Ordered 01/18/18 Ordered By: Meng Landeros - Physicians Team Primary Care Provider: Primary Care Physici,No Attending Provider: Meng Landeros Other Providers: Valdo Nuñez MD ; Chilango Edgar MD ; Anatoly Leal MD
[2018-01-18 13:22] VITALS: BP 156/74; RESP 24; TEMP 98; O2SAT 97
[2018-01-18 13:24] VITALS: PULSE 70
--- NOTE | 2018-01-18 15:12 | P.PNPL ---
Subjective Interval history: 67 YOWF with COPD exac, AF Breathing better Still weak, sob with any activity PFT Severe COPD Up in chair Son at BS Physical Exam Vital signs: Vital Signs 01/17/18 15:38 01/17/18 15:39 01/17/18 16:00 Temperature Pulse Rate 64 58 L Respiratory Rate 20 Blood Pressure Pulse Oximetry 93 L Pulse Oximetry [Exertion on Room Air] Pulse Oximetry [Resting with Oxygen] 01/17/18 17:00 01/17/18 18:00 01/17/18 19:00 Temperature 97.8 F Pulse Rate 66 60 66 Respiratory Rate 20 Blood Pressure 155/91 H Pulse Oximetry 95 Pulse Oximetry [Exertion on Room Air] Pulse Oximetry [Resting with Oxygen] 01/17/18 20:00 01/17/18 21:00 01/17/18 21:13 Temperature Pulse Rate 62 70 Respiratory Rate Blood Pressure Pulse Oximetry 95 Pulse Oximetry [Exertion on Room Air] 81 L Pulse Oximetry [Resting with Oxygen] 90 L 01/17/18 21:18 01/17/18 22:00 01/17/18 23:00 Temperature 98.1 F Pulse Rate 69 58 L 65 Respiratory Rate 22 20 Blood Pressure 159/69 H Pulse Oximetry 98 Pulse Oximetry [Exertion on Room Air] Pulse Oximetry [Resting with Oxygen] 01/18/18 00:00 01/18/18 01:00 01/18/18 02:00 Temperature Pulse Rate 58 L 86 62 Respiratory Rate Blood Pressure Pulse Oximetry Pulse Oximetry [Exertion on Room Air] Pulse Oximetry [Resting with Oxygen] 01/18/18 03:00 01/18/18 04:00 01/18/18 05:00 Temperature 98.1 F Pulse Rate 71 78 61 Respiratory Rate 20 20 Blood Pressure 166/86 H Pulse Oximetry 94 L Pulse Oximetry [Exertion on Room Air] Pulse Oximetry [Resting with Oxygen] 01/18/18 06:00 01/18/18 07:00 01/18/18 08:00 Temperature 97.6 F Pulse Rate 67 52 L 68 Respiratory Rate 22 Blood Pressure 160/98 H Pulse Oximetry 92 L Pulse Oximetry [Exertion on Room Air] Pulse Oximetry [Resting with Oxygen] 01/18/18 09:00 01/18/18 09:34 01/18/18 10:00 Temperature Pulse Rate 74 66 65 Respiratory Rate 15 Blood Pressure Pulse Oximetry 92 L Pulse Oximetry [Exertion on Room Air] Pulse Oximetry [Resting with Oxygen] 01/18/18 11:00 01/18/18 12:00 01/18/18 13:00 Temperature 98.0 F Pulse Rate 61 80 70 Respiratory Rate 24 Blood Pressure 156/74 H Pulse Oximetry 97 Pulse Oximetry [Exertion on Room Air] Pulse Oximetry [Resting with Oxygen] Intake & Output 01/17/18 01/18/18 01/18/18 18:59 06:59 18:59 Intake Total 480 / 480 240 / 240 Balance 480 / 480 240 / 240 Weight 66.4 kg Intake: Oral 480 / 480 240 / 240 Other: # Voids 4 2 Date of Last Bowel Movement 01/17/18 GENERAL: Elderly WF,NAD SKIN: Warm and dry. HEAD: Normocephalic. EYES: No scleral icterus. No injection or drainage. NECK: Supple, trachea midline. No JVD or lymphadenopathy. CARDIOVASCULAR: Regular rate and rhythm without murmurs, gallops, or rubs. RESPIRATORY: Breath sounds equal bilaterally. No accessory muscle use. Decreased Chest excursion GASTROINTESTINAL: Abdomen soft, non-tender, nondistended. MUSCULOSKELETAL: No cyanosis, or edema. BACK: Nontender without obvious deformity. No CVA tenderness. Assessment and Plan - Plan IMPRESSION: 1. Chronic obstructive pulmonary disease exacerbation. 2. Lung infiltrate. 3. Nicotine use. 4. Hypoxia. No pulmonary embolism. 5. Atrial fibrillation with rapid ventricular rate. PLAN: PO Steroids Cont Abx Aerosol nebs Supplement 02 Will need home 02 Smoking cessation. DC Plans underway for [facility] DW Son Will Fu in office
== END 2018-01-18 16:36 ==
LOC: NEPE 12:24 → NEDA 17:06 → HCIS 19:40
PROVIDERS: ADMIT Family Medicine; ATTEND Family Medicine